=== PATIENT | female | born 1965 | race Caucasian/White ===

== ENCOUNTER 2020-05-01 17:34 | Outpatient (CLI) | payer OTHER, SELFPAY | END 2020-05-01 17:35 | disposition home or self-care (01) | LOC: ANHCOVIDVC 17:34 | PROVIDERS: PCP Nurse Practitioner | DX: Z23 Encounter for immunization (principal) | CPT/HCPCS: 0001A; 91300 ==

== ENCOUNTER → 2020-05-08 17:20 | Outpatient (CLI) | payer OTHER, SELFPAY ==
--- NOTE | ~2020-05-08 | MM_ITS ---
EXAMINATION: MM screening chacorta BI w shanti HISTORY: Screening TECHNIQUE: Craniocaudal and mediolateral oblique 3-D tomosynthesis images were obtained and synthetic 2-D images were generated. CAD analysis was submitted and interpreted. COMPARISON: Comparison to multiple prior studies sequentially, with oldest reviewed study dated 08/18. BREAST PARENCHYMAL COMPOSITION: There are scattered areas of fibroglandular density. FINDINGS: There is no evidence of suspicious mass, calcification, or architectural distortion to sugg est malignancy in either breast. There has been no suspicious interval change. IMPRESSION: 1. No mammographic evidence of malignancy. 2. Recommend routine screening mammography in one year. BI-RADS Category 1: Negative Reviewed, dictated and finalized at location A.
== END ==
PROVIDERS: Visit Provider Nurse Practitioner
DX: Z12.31 Encounter for screening mammogram for malignant neoplasm of breast (principal)
CPT/HCPCS: 77063; 77067

== ENCOUNTER 2020-05-22 17:37 | Outpatient (CLI) | payer OTHER, SELFPAY | END 2020-05-22 17:38 | disposition home or self-care (01) | LOC: ANHCOVIDVC 17:37 | DX: Z23 Encounter for immunization (principal) | CPT/HCPCS: 0002A; 91300 ==

== ENCOUNTER 2020-07-28 18:19 | Observation (INO) | payer OTHER, SELFPAY ==
--- NOTE | ~2020-07-28 | CT_ITS ---
EXAMINATION: CT abdomen pelvis w con DATE: 07/28/2020 23:48 INDICATION: Right lower quadrant abdominal pain. TECHNIQUE: Computed tomography (CT) of the abdomen and pelvis was performed with 100 mL Omnipaque-350 intravenous contrast. Automated exposure control and iterative reconstruction technique were employe d. The dose-length product was 1659.59 mGy-cm. COMPARISON: None FINDINGS: Minimal bibasilar atelectasis. Heart size is normal. No pericardial or pleural effusion. Small slidin g-type hiatal hernia. Multiple calcified gallstones in the normal-appearing gallbladder. Liver, splee n, pancreas and bilateral adrenal glands are normal. Bilateral adrenal glands, the larger on the left measuring 2.4 cm. The fluid-filled appendix is dilated to 14 mm with prominent mucosal enhancement a nd with surrounding inflammatory stranding consistent with acute appendicitis. No abscess or free int raperitoneal gas or fluid. A few diverticula predominantly along the sigmoid colon without adjacent i nflammatory change to suggest diverticulitis. No bowel obstruction. Bladder, anteverted uterus and bi lateral adnexa are unremarkable. Bones are unremarkable. IMPRESSION: 1. Acute appendicitis. 2. Cholelithiasis. 3. Small sliding-type hiatal hernia. Reviewed, dictated and finalized at location A.
[2020-07-28 18:42] VITALS: BP 143/86; PULSE 95; RESP 20; TEMP 36.7; O2SAT 99
[2020-07-28 18:58] LABS: Basophils Absolute Auto 0.1 K/mm3 (0.0-0.1); Basophils Percent Auto 0.4 % (0.2-1.2); Eosinophils Absolute Auto 0.1 K/mm3 (0-0.3); Eosinophils Percent Auto 0.7 % (0-4.4); Hematocrit 49.1 % (37.0-47.0); Hemoglobin 16.2 g/dL (12.0-15.0); Immature Granulocyte Absolute 0.05 K/mm3 (0.00-0.031); Immature Granulocyte Percent A 0.4 % (0-0.5); Lymphocytes Absolute Auto 2.93 K/mm3 (0.9-3.2); Lymphocytes Percent Auto 21.6 % (18.3-44.2); Mean Corpuscular Hemoglobin 31.3 pg (26-34); Mean Corpuscular Volume 94.8 fl (80-100); Mean Platelet Volume 8.9 fl (7.4-10.4); Neutrophils Absolute Auto 9.5 K/mm3 (1.3-6.7); Neutrophils Percent Auto 69.9 % (45.5-73.1); Platelet Count Result 281 k/mm3 (150-375); Red Blood Count 5.18 M/mm3 (4.2-5.4); Red Cell Distribution Width 12.2 % (11.5-14.5); White Blood Count 13.6 K/mm3 (4.5-10.0)
[2020-07-28 19:07] LABS: Alanine Aminotransferase 21 U/L (4-35); Albumin Level 4.5 g/dL (3.5-5.1); Alkaline Phosphatase 84 U/L (38-126); Anion Gap 12 mmol/L (8-16); Aspartate Amino Transferase 24 U/L (14-36); Bilirubin,Total 0.9 mg/dL (0.2-1.3); Blood Urea Nitrogen 10 mg/dL (7-17); Calcium 9.8 mg/dL (8.4-10.2); Carbon Dioxide 24 mmol/L (22-30); Chloride 105 mmol/L (98-107); Estimated CRCL calculation 94 ml/min; Estimated Glomerular Filt Rate > 60; Glucose 77 mg/dL (65-105); Lipase 35 U/L (23-300); Potassium 3.9 mmol/L (3.4-5.0); Sodium 141 mmol/L (137-145)
[2020-07-28 21:24] VITALS: BP 141/90; PULSE 96; RESP 14; O2SAT 100
--- NOTE | 2020-07-28 21:57 | ED.ABDPAIN ---
HPI - Abdominal Pain General Chief Complaint: Abdominal Pain Stated Complaint: abd pain Time Seen by Provider: 07/28/20 21:56 Source: patient Mode of arrival: ambulatory Limitations: no limitations History of Present Illness HPI narrative: 54-year-old with no major medical problems here with right-sided abdominal pain started 1 day ago. Patient states over the weekend she had chest pain radiating into her back went to [facility] cardiac evaluation was told it was normal was discharged home following days she started having right upper and lower abdominal pain. She denied any fever or chills. No history of nausea or vomiting. She had a normal bowel movement day before. MD elicited complaint: abdominal pain Pertinent past history: none Onset (ago): day(s) (1) Pain Consistency: constant Location: RUQ and RLQ Severity: moderate Quality: aching Radiation: back Exacerbating factors: nothing Relieving factors: nothing Associated symptoms: denies other symptoms Related Data Home Medications Medication Instructions Recorded Confirmed efiqmfq-dfjvcqbxrldsb-yaypcnnw 250 1 tablet PO Q4-6H PRN 01/01/19 07/28/20 mg-250 mg-65 mg tablet wjihaubleu-qcjlbbemqzzoj-akijinkd 1 cap PO Q4H PRN 01/01/19 07/28/20 50 mg-300 mg-40 mg capsule calcium carbonate 200 mg calcium 200 mg PO ONCE PRN tablet 01/01/19 07/28/20 (500 mg) chewable tablet vitamin B complex 1 tablet PO DAILY 07/28/20 07/28/20 Allergies Allergy/AdvReac Type Severity Reaction Status Date / Time aspirin Allergy Unknown bleeding Verified 07/28/20 21:48 Review of Systems Review of Systems: All systems reviewed & are unremarkable except as noted in HPI and below Constitutional: Constitutional: Reports no additional constitutional complaints Eyes: Eyes: Reports no additional eye complaints ENT: Reports system reviewed and no additional complaints, except as documented Cardiovascular: Cardiovascular: Reports no additional cardiovascular complaints Respiratory: Respiratory: Reports no additional respiratory complaints Gastrointestinal: Gastrointestinal: Reports as per HPI Musculoskeletal: Musculoskeletal: Reports no additional musculoskeletal complaints Neurologic: Reports system reviewed and no additional complaints, except as documented Psychiatric: Psychiatric: Reports no additional psychiatric complaints Endocrine: Endocrine: Reports no additional endocrine complaints Hematologic/Lymphatic: Hematologic/Lymphatic: Reports no additional hematologic/lymphatic complaints Allergic/Immunologic: Allergic/Immunologic: Reports no additional allergic/immunologic complaints [facility] Past Medical History Medical History Chicken pox Chronic pain Elevated BP without diagnosis of hypertension Gallstones Heartburn Hemorrhoids Hyperlipidemia Migraine Miscarriage Vitamin D deficiency Surgical History Surgical History H/O stem cell transplant Stem cell injection August 2018 Family History Family History Father Heart disease Heart attack Diabetes mellitus Mother Migraines Arthritis Cognitive and behavioral changes Social History Social History Smoking status: Never smoker Alcohol intake: current Substance use: never Exam Narrative: Exam Narrative: GENERAL: Well-appearing, well-nourished, and in no acute distress. HEAD: Normocephalic, atraumatic. EYES: PERRLA and EOMI. ENT: Nares clear, no rhinorrhea or epistaxis. Mucous membranes moist. NECK: Supple. CHEST: Clear to auscultation. No respiratory distress. HEART: Regular rate and rhythm. No murmur heard. Normal peripheral pulses. ABDOMEN: Soft, tender in the right lower quadrant , nondistended, normal active bowel sounds. EXTREMITIES: Normal range of motion. No edema. SKIN:
[2020-07-28 22:14] LABS: Add Urine Microscopic? YES; Appearance Urine Cloudy (Clear); Bacteria Urine Trace /hpf; Bilirubin Urine Negative (Negative); Blood Urine Negative (Negative); Color Urine Yellow (Yellow); Glucose Urine UA Negative (Negative); Ketones Urine 2+ mg/dL (Negative); Leukocyte Esterase Ur 1+ LEU/UL (Negative); Mucus Urine Heavy /lpf; Nitrate Urine Negative (Negative); Protein Urine 1+ mg/dL (Negative); Specific Grav Ur 1.027 (1.001-1.035); Squamous Epithelial Cell Urine Many /hpf (Few); Urobilinogen Urine Negative mg/dL (<2.0); WBC Urine 16-20 /hpf
[2020-07-29] VITALS (14 sets, daily range): BP systolic 129–149; BP diastolic 74–95; PULSE 59–92; RESP 14–20; TEMP 36.1–36.9; O2SAT 92–100; BMI 41.1
--- NOTE | 2020-07-29 02:34 | ADMGEN ---
This patient, Jocelin Oates, was admitted to 3 Med Surg Room 320-01 at 0145. Patient/family oriented to hospital policies and general routines including ID bracelet, bed and alarms, visiting hours, pain management, procedures, bathroom and other care routines, personal items, smoking policy, room service/diet, and visiting hours. Information on how to activate the Rapid Response Team has been discussed. Patient/Family are encouraged to report perceived risks to care and to ask questions if they do not understand what they are told or what they should do.
--- NOTE | 2020-07-29 03:48 | PC.NURSE ---
Addendum entered by Ginny Lion RN 07/29/20 10:42: This note was entered on the wrong patient. Original Note: 0300: Family summons SN to room 320 to find patient w/ no pulse and skin cold to the touch. Notified House Sup (Glo). Comfort and consolement extended to family members w/o incident.
[2020-07-29] MEDS: SODIUM CHLORIDE 0.9% IV 1,000 ML 125 ML IV CONT (07:05)
--- NOTE | 2020-07-29 10:09 | PM.IMHP ---
H&P: HPI History of Present Illness Date/Time: 07/29/20 10:09 Chief Complaint: Right-sided abdominal pain Narrative: This is a 54-year-old morbidly obese female with a history of hyperlipidemia and vitamin D deficiency. She presented to the emergency department yesterday evening with complaints of right-sided abdominal pain. She reports initially did noticing epigastric and substernal chest pain that was shooting to her back last Tuesday. The pain ultimately led her to be evaluated in [place] ER. She had cardiac workup and a chest x-ray that were reportedly negative. She was sent home with NSAIDs and reports the pain quickly resolved. She continued to have some nausea, diarrhea, and poor appetite over the next few days. Over the weekend, she had a or Tuesday and began to have worsening epigastric and right upper quadrant abdominal pain. This again improved and resolved. Yesterday, she notice more just right-sided abdominal pain and decided to present to her PCP for evaluation. Her PCP instructed her to go to the ER for further evaluation. CT scan of the abdomen pelvis in the ER showed acute appendicitis without evidence of perforation, diverticulosis, and cholelithiasis. Labs revealed leukocytosis. The patient was admitted to our service for surgical evaluation of acute appendicitis. She is now seen on the medical floor. She reports her abdominal pain has localized to the right mid and lower abdomen. She denies fever, but did have chills a few days ago. No other complaints at this time. Review of Systems Review of Systems: All systems reviewed & are unremarkable except as noted in HPI and below Constitutional: Constitutional: Reports as per HPI, Denies chills, Denies fatigue and Denies fever(s) Eyes: Eyes: Reports no additional eye complaints and Denies change in vision ENT: Reports system reviewed and no additional complaints, except as documented, Reports Normal hearing present and Denies dizziness Cardiovascular: Cardiovascular: Reports as per HPI, Reports no additional cardiovascular complaints and Denies leg edema Respiratory: Respiratory: Reports no additional respiratory complaints, Denies cough and Denies dyspnea Gastrointestinal: Gastrointestinal: Reports as per HPI, Reports no additional gastrointestinal complaints, Reports abdominal pain (Right sided), Denies melena, Denies hematochezia, Denies constipation, Reports diarrhea, Reports nausea and Denies vomiting Genitourinary: Genitourinary: Denies hematuria, Denies nocturia, Denies dysuria, Denies urinary hesitancy and Denies urinary urgency Musculoskeletal: Musculoskeletal: Denies abnormal gait, Denies deformity, Denies joint swelling, Denies numbness and Denies tingling Integumentary/Breasts: Skin/Breast: Denies wounds and Denies jaundice Neurologic: Reports system reviewed and no additional complaints, except as documented, Reports Normal hearing present, Denies abnormal gait, Denies dizziness, Denies focal weakness, Denies numbness and Denies tingling Psychiatric: Psychiatric: Denies anxiety and Denies depression PMFSH Past Medical History Medical History Chicken pox Chronic pain Elevated BP without diagnosis of hypertension Gallstones Heartburn Hemorrhoids Hyperlipidemia Migraine Miscarriage Vitamin D deficiency Surgical History Surgical History H/O stem cell transplant Right knee PRP stem cell injection August 2018 History of x 2 History of D&C x 2 History of hemorrhoidectomy Family History Family History Father Heart disease Heart attack Diabetes mellitus Mother Migraines Arthritis Cognitive and behavioral changes Social History Social History Smoking status: Never smoker Alcohol inta
--- NOTE | 2020-07-29 11:26 | WPDHPUPDATE1 ---
History and Physical Update Update Date/Time: 07/29/20 11:26 History and Physical has been reviewed, including an updated exam of the patient. There are NO changes in the patient's condition. Risks, benefits, and alternatives have been discussed and questions answered. Patient agrees to proceed with procedure.
[2020-07-29] MEDS: LACTATED RINGERS 1,000 ML 30 ML IV CONT ×2 (12:44→15:15)
--- NOTE | 2020-07-29 12:56 | WPDANESEPPF ---
Anes - Initial Pre Proc Eval Procedure: Operation Date: 07/29/20 14:30 Proposed Procedures p Laparoscopic Appendectomy - Piper Chou MD Date/Time: 07/29/20 12:56 Surgeon: Piper Chou MD Pre Op Diagnosis: Acute Appendicitis Patient Data Age: 54 Gender: F Height: 1.68 m Weight: 115.7 kg Last Vital Signs Temp 36.3 C L 07/29/20 08:02 Pulse 72 07/29/20 08:02 Resp 18 07/29/20 08:02 BP 129/82 07/29/20 08:02 Pulse Ox 98 07/29/20 08:02 Allergies Allergy/AdvReac Type Severity Reaction Status Date / Time aspirin Allergy Unknown bleeding Verified 07/28/20 21:48 Home Medications Medication Instructions Recorded Confirmed Type mwjgotz-mdavwvsqwxrya-bpxkmepd 250 1 tablet PO Q4-6H PRN 01/01/19 07/29/20 History mg-250 mg-65 mg tablet fqktzvjgng-gmrmngcswkbno-kcqolhfz 1 cap PO Q4H PRN 01/01/19 07/29/20 History 50 mg-300 mg-40 mg capsule calcium carbonate 200 mg calcium 200 mg PO ONCE PRN tablet 01/01/19 07/29/20 History (500 mg) chewable tablet valacyclovir 1 gram tablet 2,000 mg PO Q12H PRN #16 tablet 04/03/20 07/29/20 Rx cholecalciferol (vitamin D3) 1,250 50,000 unit PO WEEKLY #8 cap 04/25/20 07/29/20 Rx mcg (50,000 unit) capsule vitamin B complex 1 tablet PO DAILY 07/28/20 07/29/20 History Laboratory Tests 07/28/20 07/28/20 07/28/20 18:49 18:49 21:59 WBC 13.6 K/mm3 H K/mm3 (4.5-10.0) RBC 5.18 M/mm3 M/mm3 (4.2-5.4) Hgb 16.2 g/dL H g/dL (12.0-15.0) Hct 49.1 % H % (37.0-47.0) MCV 94.8 fl fl (80-100) MCH 31.3 pg pg (26-34) MCHC 33.0 g/dl g/dl (32-36) RDW 12.2 % % (11.5-14.5) Plt Count 281 k/mm3 k/mm3 (150-375) MPV 8.9 fl fl (7.4-10.4) Immature Gran % (Auto) 0.4 % % (0-0.5) Neut % (Auto) 69.9 % % (45.5-73.1) Lymph % (Auto) 21.6 % % (18.3-44.2) Harris % (Auto) 7.0 % % (2.6-8.5) Eos % (Auto) 0.7 % % (0-4.4) Baso % (Auto) 0.4 % % (0.2-1.2) Lymph # (Auto) 2.93 K/mm3 K/mm3 (0.9-3.2) Harris # (Auto) 1.0 K/mm3 H K/mm3 (0.1-0.6) Eos # (Auto) 0.1 K/mm3 K/mm3 (0-0.3) Baso # (Auto) 0.1 K/mm3 K/mm3 (0.0-0.1) Abs Immat Gran (auto) 0.05 K/mm3 H K/mm3 (0.00-0.031) Absolute Neuts (auto) 9.5 K/mm3 H K/mm3 (1.3-6.7) Absolute Nucleated RBC 0.0 K/mm3 K/mm3 (0.0-0.012) Nucleated RBC % 0.0 % % (0.0-0.2) Sodium 141 mmol/L mmol/L (137-145) Potassium 3.9 mmol/L mmol/L (3.4-5.0) Chloride 105 mmol/L mmol/L (98-107) Carbon Dioxide 24 mmol/L mmol/L (22-30) Anion Gap 12 mmol/L mmol/L (8-16) BUN 10 mg/dL mg/dL (7-17) Creatinine 0.80 mg/dL mg/dL (0.7-1.0) Estim Creat Clear Calc 94 ml/min ml/min Estimated GFR > 60 (59 - ) Glucose 77 mg/dL mg/dL (65-105) Calcium 9.8 mg/dL mg/dL (8.4-10.2) Total Bilirubin 0.9 mg/dL mg/dL (0.2-1.3) AST 24 U/L U/L (14-36) ALT 21 U/L U/L (4-35) Alkaline Phosphatase 84 U/L U/L (38-126) Total Protein 9.0 g/dL H g/dL (6.3-8.2) Albumin 4.5 g/dL g/dL (3.5-5.1) Lipase 35 U/L U/L (23-300) Urine Color Yellow (Yellow) Urine Appearance Cloudy H (Clear) Urine pH 5.0 (5.0-9.0) Ur Specific [place] 1.027 (1.001-1.035) Urine Protein 1+ mg/dL H mg/dL (Negative) Urine Glucose (UA) Negative mg/dL mg/dL (Negative) Urine Ketones 2+ mg/dL H mg/dL (Negative) Ur Blood (Man) Negative (Negative) Urine Nitrate Negative (Negative) Urine Bilirubin Negative (Negative) Urine Urobilinogen Negative mg/dL mg/dL (<2.0) Leukocyte Esterase Rfl 1+ ABHINAV/UL H ABHINAV/UL (Negative) Ur
[2020-07-29] MEDS: BUPIVACAINE/EPINEPHRINE 0.5% 10 ML VIAL 30 ML INFILTRATE (14:17)
--- NOTE | 2020-07-29 14:45 | W.PM.PROC2 ---
Procedure Note - Detailed Date of Procedure 07/29/20 Pre-op Diagnosis Acute Appendicitis Post-op Diagnosis same Procedure Performed laparoscopic appendectomy Surgeon Piper Chou MD Anesthesia general Findings acute appendicitis no evidence of perforation Description of Procedure The patient was taken to the operating room and placed in the supine position. After adequate induction of general anesthesia, the patient was prepped and draped in the normal sterile fashion. A time-out was then done to verify the patient's identity, as well as the procedure being performed. I began by making a 5 mm incision in the infraumbilical region, through this a Veress needle was placed in the peritoneal cavity. CO2 gas was then insufflated and after adequate pneumoperitoneum was achieved the Veress needle was removed. Then placed a 5 mm Optiview trocar under direct visualization into the peritoneal cavity. I then insufflated through this trocar site and the endoscope was placed into the trocar. Under direct visualization, placed 2 further 5 mm suprapubic port as well as an additional 12 mm port in the left lower abdomen. At this point identified the cecum, I retracted the cecum both medially and superiorly allowing me to expose the appendix. The appendix was noted to be very dilated and inflamed especially towards the tip. The appendix was noted to be very adherent to the right lateral sidewall as well the lateral posterior cecum, in the retrocecal position. I was able to bluntly dissect the appendix from these adhesions and flip the appendix superiorly. I then was able to locate the base of the appendix with the cecum. I created a window with the [place] dissector between the appendix itself and the mesoappendix. I then transected the mesoappendix with a white vascular staple load. The Endo-KORINA was then reloaded with a blue staple load and I transected the base of the appendix. Once the specimen was completely detached, an endo-pouch was placed into the 12 mm port site and the specimen was removed through the endo-pouch. The appendiceal specimen will be sent to pathology for further review. I then copiously irrigated the right lower quadrant. Hemostasis was noted at both staple lines no other pathology was seen in this area. I then moved the camera to the suprapubic port to check our its port of entry. No iatrogenic injury or other pathology was noted in the upper abdomen. I then closed the 12 mm port site with a Mikey code and 0 Vicryl suture under direct visualization. At this point, the abdomen was desufflated and all ports were removed. All port sites were closed with 4 Monocryl subcuticular suture. Dermabond was placed on all wounds. The patient tolerated the procedure well and was extubated in the operating room postop. She will be sent to the recovery room in stable condition. Estimated Blood Loss 10 Urine Output 0 Drains No Pathology yes Complications No immediate complications Condition stable Disposition PACU
[2020-07-29] MEDS: fentaNYL CITRATE INJ (*CRX) 100 MCG/2 ML VIAL 25 MCG IV PUSH ×4 (15:02→15:31)
[2020-07-29] MEDS: ONDANSETRON INJ 4 MG/2 ML VIAL IV PUSH (15:13)
[2020-07-29] MEDS: MORPHINE SULFATE (*CRX) 4 MG/ML INJ IV PUSH ×2 (16:48→18:49)
[2020-07-29] MEDS: DOCUSATE SODIUM 100 MG CAPSULE PO (21:15)
[2020-07-29] MEDS: HYDROcodone/acetaminophen (*CRX) 5-325 MG TABLET 1 TAB PO (21:19)
[2020-07-30] MEDS: HYDROcodone/acetaminophen (*CRX) 5-325 MG TABLET 1 TAB PO ×2 (03:52→18:49)
[2020-07-30 06:00] VITALS: BP 130/80; PULSE 57; RESP 18; TEMP 36.3; O2SAT 98
--- NOTE | 2020-07-30 07:38 | WPDANESPN ---
Anes - Prog Note Post-Op Date/Time: 07/30/20 07:38 Cardiovascular status: normal Respiratory status: normal Airway patency: baseline Mental status: baseline Post-Op hydration status: normal Vital Signs: Last Vital Signs Temp 97.4 F L 07/30/20 06:00 Pulse 57 L 07/30/20 06:00 Resp 18 07/30/20 06:00 BP 130/80 07/30/20 06:00 Pulse Ox 98 07/30/20 06:00 Pain Score (VAS): 0 I/O: Intake & Output 07/29/20 07/29/20 07/30/20 15:59 23:59 07:59 Intake Total 950 240 550 Output Total 0 500 1800 Balance 924 -[phone] -[id number] Laboratory Tests 07/28/20 18:49 07/28/20 18:49 Patient Feedback: Patient satisfied with anesthetic care.
[2020-07-30 08:00] VITALS: BP 138/88; PULSE 51; RESP 18; TEMP 36.7; O2SAT 98
[2020-07-30] MEDS: VITAMIN B COMPLEX CAPSULE 1 CAP PO (08:40)
[2020-07-30] MEDS: DOCUSATE SODIUM 100 MG CAPSULE PO (08:40)
[2020-07-30 09:55] VITALS: O2SAT 98
--- NOTE | 2020-07-30 10:05 | PM.DS ---
DS: Admitting Diagnosis Admitting Diagnosis Admitting Diagnosis: Acute uncomplicated appendicitis Morbid obesity BMI 41 Cholelithiasis DS: Discharge Diagnosis Discharge Diagnosis (1) Acute appendicitis: Qualifiers: Acute appendicitis type: with localized peritonitis Appendicitis abscess presence: without abscess Appendicitis gangrene presence: without gangrene Appendicitis perforation presence: without perforation Qualified Code(s): K35.30 - Acute appendicitis with localized peritonitis, without perforation or gangrene Code(s): K35.80 - Unspecified acute appendicitis Status: Acute Assessment and Plan: Laparoscopic appendectomy by Dr. Chou on 07/29/2020 (2) Obesity, Class III, BMI 40-49.9 (morbid obesity): Code(s): E66.01 - Morbid (severe) obesity due to excess calories Status: Acute (3) Cholelithiasis: Code(s): K80.20 - Calculus of gallbladder without cholecystitis without obstruction Status: Acute DS: Summary Hospital Course Reason for hospitalization: This is a 54-year-old morbidly obese female who presented to the ED 2 nights ago with complaints of right-sided abdominal pain. She has had intermittent symptoms for the past week as detailed in the H and P. Her abdominal pain was associated with nausea, diarrhea, and poor appetite. ED workup revealed acute uncomplicated appendicitis on the CT scan. This was accompanied by mild leukocytosis on labs. She was admitted to our service in the setting for acute appendicitis. Hospital Course: The patient was started on broad-spectrum IV antibiotics, made NPO, and started on analgesics and IV fluids. She was taken to the OR for an urgent laparoscopic appendectomy by Dr. Chou on 07/29/2020. In surgery, she was found to appendix in the retrocecal position, but without evidence perforation. No immediate complications following surgery. In the evening after surgery, she had issues with pain control and was kept overnight for observation. Initially, she was treated with IV analgesics, but has not had any IV morphine since yesterday evening. Since then, her pain has been well-controlled with oral analgesics. She is actually requesting more options for mild pain medication, which I have added oral Tylenol and ibuprofen to be alternated. She has been advanced on a diet and is tolerating this without any issues. No nausea or vomiting. She is doing well otherwise. Patient is stable for discharge today. All discharge care instructions were discussed with her in detail. Status at Discharge Functional status at discharge: independent ambulation Overall status at discharge: patient is progressing back to baseline Time Spent with Patient Time attestation: Total time spent providing and/or coordinating discharge services: Exam Const: General: comfortable, no acute distress, alert and awake Orientation/consciousness: patient oriented x3 Resp: Effort & Inspection: normal respiratory effort Auscultation: clear to auscultation bilaterally Cardio: Rate: regular rate Rhythm: regular rhythm GI: Inspection: non-distended and incision (Abdominal incisions clean and dry, glue intact.) GI Palp: Yes Soft to palpation and Yes Tenderness to palpation present (GI) (incisional) Auscultation: normal bowel sounds Skin: General skin exam: normal color Neuro: General: moves all extremities and no focal motor deficits Extrem: General: no clubbing, cyanosis or edema and no calf tenderness Psych: Mental Status: mental status grossly normal Insight: Good insight present (Psych) Judgement: Good judgement present (Psych) DS: Data Data Completed and Pending Completed studies during hospitalization: ITS Impressions Abdomen/Pelvis CT 07/28/20 23:51 IMPRESSION: 1. Acute appendicitis. 2. Cholelithiasis. 3. Small sliding-type hiatal hernia. Pending studies at discharge: Pending at discharge 07/29/20 14:14 Surgical [PTH] Lisa
[2020-07-30] MEDS: IBUPROFEN 600 MG TABLET PO ×2 (10:21→17:18)
[2020-07-30] MEDS: SENNA/DOCUSATE SODIUM TABLET 1 TAB PO ×2 (11:46→17:21)
[2020-07-30] MEDS: ACETAMINOPHEN 500 MG TABLET 1000 MG PO (13:43)
[2020-07-30 14:00] VITALS: BP 123/68; PULSE 69; RESP 18; TEMP 36.9; O2SAT 98
== END 2020-07-30 20:00 | disposition home or self-care (01) ==
LOC: ANHED 07-29 00:25 → ANH3MEDSUR 07-29 00:48
PROVIDERS: Emergency Medicine; Admitting Provider Surgery; Emergency Provider Family Medicine; PCP Internal Medicine; Visit Provider Surgery
PROC: 0DTJ4ZZ Resection of Appendix, Percutaneous Endoscopic Approach (ICD-10-PCS; CPT 44970; principal; 2020-07-29 14:30)
DX: K35.30 Acute appendicitis with localized peritonitis, without perforation or gangrene (principal); K80.20 Calculus of gallbladder without cholecystitis without obstruction; K57.92 Diverticulitis of intestine, part unspecified, without perforation or abscess without bleeding; E66.01 Morbid (severe) obesity due to excess calories; E78.5 Hyperlipidemia, unspecified; E55.9 Vitamin D deficiency, unspecified; Z68.41 Body mass index [BMI] 40.0-44.9, adult
CPT/HCPCS: 44970; 36415; 74177; 80053; 81001; 81025; 83690; 85025; 87086; 88304; 96361; 96365; 96366; 96376; 99285; A9270; G0378; J0330; J1100; J2250; J2270; J2405; J2543; J2704; J3010; J7030; J7120; Q9967

== ENCOUNTER 2021-02-25 01:37 | Day surgery (SDC) | payer OTHER, SELFPAY ==
[2021-02-16 14:44] VITALS: BMI 42.0
--- NOTE | 2021-02-16 15:05 | PC.NURSE ---
Report to the Outpatient Waiting Room, entrance under the green pavilion located off [facility], at time 1230 on date 02/25/21. OR Time: 1430. - You will be asked a series of questions to screen for COVID 19 for your protection. - A mask is required within the hospital. - No visitors are allowed at this time. Patient visitors will be guided where to wait when not with patient. Preoperative COVID Testing Requirements: No COVID Test needed if: (proof is required; if not received patient will have Rapid Test prior to entry) - Patient has received COVID Vaccine at least 14 days prior to procedure date or - Patient has positive COVID test result within last 90 days of surgery date. COVID Test needed if above criteria is not met Patients may have clear liquids (water, carbonated beverages, clear teas, apple juice) until 3 hours prior to surgery with a maximum of 20 ounces. - No food from midnight until time of surgery Take the following medications with a SIP of water the morning of surgery: VALACYCLOVIR (IF NEEDED) Medications to discontinue per physician: VITAMINS/SUPPLEMENTS Date to take last dose: 02/22/[address] RENNER'S INSTRUCTIONS Please no make-up, nail faroese, hairspray, perfume, deodorant, or body powder the day of surgery. No jewelry (including any body piercings) or valuables the day of surgery, leave them at home. Please take a shower or bath the night before, or the morning of, surgery with an antibacterial soap. Wear comfortable, loose fitting clothing. Children are encouraged to wear pajamas. - Jewelry must be removed prior to entering the operating room. Rings and piercings that are not removed may be cut off. - The hospital will not accept responsibility for valuables. - Please leave all valuables, including medications, at home the day of surgery. If you are going home after surgery, a licensed coach driver must drive you home. - NO public transportation without another adult. - We recommend that an adult stay with you for 24 hours following discharge. - We also recommend that you do not drive, make important decision, drink alcoholic beverages, or take any drugs that were not prescribed by your health care provider for at least 24 hours after your discharge time. Follow any additional instructions given to you from your surgeon. Telephone instructions given to FLOYD GAN and asked if any additional questions and then verbalized understanding. Patient advised to call surgeon office or pre surgery nurse liaison [phone] if any additional questions.
--- NOTE | 2021-02-25 07:59 | WPDANESEPPF ---
Anes - Initial Pre Proc Eval Procedure: Operation Date: 02/25/21 14:30 Proposed Procedures p Hysteroscopy, Dilation and Curettage - Benedict Terry MD Date/Time: 02/25/21 07:59 Surgeon: Benedict Terry MD Pre Op Diagnosis: post menopausal bleeding Patient Data Age: 55 Gender: F Height: 1.68 m Weight: 118 kg Allergies Allergy/AdvReac Type Severity Reaction Status Date / Time aspirin Allergy Mild bleeding Verified 02/25/21 13:14 Home Medications Medication Instructions Recorded Confirmed Type qijqzln-vmemaiskgqxxa-yvnybktd 250 1 tablet PO Q4-6H PRN 01/01/19 02/16/21 History mg-250 mg-65 mg tablet fbjehsiyhb-yyixnfscsszle-kyrmtibv 1 cap PO Q4H PRN 01/01/19 02/16/21 History 50 mg-300 mg-40 mg capsule calcium carbonate 200 mg calcium 200 mg PO ONCE PRN tablet 01/01/19 02/16/21 History (500 mg) chewable tablet valacyclovir 1 gram tablet 2,000 mg PO Q12H PRN #16 tablet 04/03/20 02/16/21 Rx vitamin B complex 1 tablet PO DAILY 07/28/20 02/16/21 History aspirin 81 mg tablet,delayed 81 mg PO DAILY 09/26/20 02/16/21 History release omeprazole 20 mg capsule,delayed 20 mg PO DAILY #30 cap 11/24/20 02/16/21 Rx release ascorbic acid (vitamin C) [Vitamin 500 mg PO DAILY 02/16/21 02/16/21 History C] cholecalciferol (vitamin D3) 75 mcg PO DAILY 02/16/21 02/16/21 History [Vitamin D3] docusate sodium [Colace] 100 mg PO BID 02/16/21 02/16/21 History melatonin 10 mg PO HS PRN 02/16/21 02/16/21 History Patient hx anesthesia problems: none Family hx anesthesia problems: none Results Review: All pre-operative results and documents have been reviewed as part of the pre-operative evaluation. [facility] Past Medical History Medical History Chicken pox Chronic pain COPD (chronic obstructive pulmonary disease) Elevated BP without diagnosis of hypertension Gallstones GERD (gastroesophageal reflux disease) Heartburn Hemorrhoids Hyperlipidemia Migraine Miscarriage Vitamin D deficiency Surgical History Surgical History H/O stem cell transplant Right knee PRP stem cell injection August 2018 History of appendectomy (~07/2020) History of x 2 History of D&C x 2 History of hemorrhoidectomy Family History Family History Father Heart disease Heart attack Diabetes mellitus Mother Migraines Arthritis Cognitive and behavioral changes Social History Social History Smoking status: Never smoker Alcohol intake: current Drinks per week: 2 Alcohol use details: Pt drinks occasionally. Substance use: never Substance use type: does not use Living arrangements: with family Gender identity (if verbalized by the patient): Female Sexual Orientation (if Verbalized by the Patient): Straight or Heterosexual Spiritual care concerns: No Anes - Eval Final PreProcedure Day of Procedure 02/25/21 07:59 Patient weight: morbidly obese Heart: regular rate and rhythm Lungs: clear to auscultation and normal air movement Airway: Mallampati scale class II Neurological: alert and oriented Last oral intake: >/= 8 hours ASA classification: III Emergent: no Anesthetic plan: proceed Anesthesia type and monitoring: general GIVS and standard monitoring Results Review: All pre-operative results and documents have been reviewed as part of the pre-operative evaluation. Informed Consent: The patient's anesthetic plan and its attendant risks and benefits were discussed with the patient/family/POA. Questions were solicited and answers provided to the satisfaction of the patient/family/POA.
--- NOTE | 2021-02-25 13:03 | PM.IMHP ---
H&P: HPI History of Present Illness Date/Time: 02/25/21 13:03 55 y/o with an episode of postmenopausal bleeding. Ultrasound showed an endometrial complex 10.6 mm thick. Chief Complaint: Bleeding Review of Systems Review of Systems: All systems reviewed & are unremarkable except as noted in HPI and below [facility] Past Medical History Medical History Chicken pox Chronic pain COPD (chronic obstructive pulmonary disease) Elevated BP without diagnosis of hypertension Gallstones GERD (gastroesophageal reflux disease) Heartburn Hemorrhoids Hyperlipidemia Migraine Miscarriage Vitamin D deficiency Surgical History Surgical History H/O stem cell transplant Right knee PRP stem cell injection August 2018 History of appendectomy (~07/2020) History of x 2 History of D&C x 2 History of hemorrhoidectomy Family History Family History Father Heart disease Heart attack Diabetes mellitus Mother Migraines Arthritis Cognitive and behavioral changes Social History Social History Smoking status: Never smoker Alcohol intake: current Drinks per week: 2 Alcohol use details: Pt drinks occasionally. Substance use: never Substance use type: does not use Living arrangements: with family Gender identity (if verbalized by the patient): Female Sexual Orientation (if Verbalized by the Patient): Straight or Heterosexual Spiritual care concerns: No Meds Home Medications and Allergies Home Medications Medication Instructions Recorded Confirmed Type emzrcpb-ewwbfzhrdvwqd-nwwbrmcr 250 1 tablet PO Q4-6H PRN 01/01/19 02/16/21 History mg-250 mg-65 mg tablet jarzchsikv-eieyfesfjqebs-ukvxemxb 1 cap PO Q4H PRN 01/01/19 02/16/21 History 50 mg-300 mg-40 mg capsule calcium carbonate 200 mg calcium 200 mg PO ONCE PRN tablet 01/01/19 02/16/21 History (500 mg) chewable tablet valacyclovir 1 gram tablet 2,000 mg PO Q12H PRN #16 tablet 04/03/20 02/16/21 Rx vitamin B complex 1 tablet PO DAILY 07/28/20 02/16/21 History aspirin 81 mg tablet,delayed 81 mg PO DAILY 09/26/20 02/16/21 History release omeprazole 20 mg capsule,delayed 20 mg PO DAILY #30 cap 11/24/20 02/16/21 Rx release ascorbic acid (vitamin C) [Vitamin 500 mg PO DAILY 02/16/21 02/16/21 History C] cholecalciferol (vitamin D3) 75 mcg PO DAILY 02/16/21 02/16/21 History [Vitamin D3] docusate sodium [Colace] 100 mg PO BID 02/16/21 02/16/21 History melatonin 10 mg PO HS PRN 02/16/21 02/16/21 History Allergies Allergy/AdvReac Type Severity Reaction Status Date / Time aspirin Allergy Unknown bleeding Verified 02/16/21 14:39 Exam Const: Orientation/consciousness: patient oriented x3 Other: Well-developed, well-nourished female in no acute distress. Neck: Thyroid: thyroid normal Lymphatic: no lymphadenopathy noted (in neck, axilla or inguinal nodes) Resp: Effort & Inspection: normal respiratory effort Auscultation: clear to auscultation bilaterally Cardio: Rate: regular rate Rhythm: regular rhythm Heart sounds: S1 normal heart sound present and S2 normal heart sound present GI: Other: ABD: Soft, nontender, nondistended. No guarding or rebound tenderness. No hepatosplenomegaly. : General: Yes no CVA tenderness Other: External genitalia: normal female hair distribution, without lesion. Urethral meatus: no lesion, non prolapsed. Bladder: no mass, nontender Vagina: well-estrogenized, without lesion or discharge. No cystocele or rectocele. Cervix: no lesion or discharge. Uterus: small, anteverted, freely mobile, nontender Adnexa: no mass or tenderness. Anus/perineum: no lesions, nontender Back/Spine/Pelvis: Back: no CVA tenderness Skin: General skin exam: normal color and no rashes o
[2021-02-25] MEDS: ACETAMINOPHEN 500 MG TABLET 1000 MG PO (14:00)
[2021-02-25] MEDS: LACTATED RINGERS 1,000 ML 30 ML IV CONT (14:11)
--- NOTE | 2021-02-25 14:13 | WPDHPUPDATE1 ---
History and Physical Update Update Date/Time: 02/25/21 14:13 History and Physical has been reviewed, including an updated exam of the patient. There are NO changes in the patient's condition. Risks, benefits, and alternatives have been discussed and questions answered. Patient agrees to proceed with procedure.
[2021-02-25 14:21] VITALS: BP 146/87; PULSE 76; TEMP 37; O2SAT 99
--- NOTE | 2021-02-25 14:59 | W.PM.PROC2 ---
Procedure Note - Detailed Date of Procedure 02/25/21 Pre-op Diagnosis post menopausal vaginal bleeding Post-op Diagnosis same Procedure Performed Hysteroscopy Dilation and sharp curettage Endometrial polypectomy Surgeon Benedict Terry MD Anesthesia MAC and local (1% lidocaine) Findings Three fundal endometrial polyps. Both tubal ostia seen. Endometrial tissue otherwise atrophic. Description of Procedure The patient was taken to the operating room where she was prepared and draped in the usual sterile fashion in the dorsal lithotomy position. The bladder was drained with a red rubber catheter. A sterile speculum was placed into the vagina. The anterior lip of the cervix was grasped with single-tooth tenaculum. Ten mL of 1% lidocaine was administered in a paracervical block. The cervix was then gently dilated using Hegar dilators until an 8 mm dilator could be passed. Hysteroscopy was performed using sterile saline as a distention medium. Findings are as noted above. The polyp forceps were advanced and polyps were easily removed. Sharp curettage was then performed, and endometrial curettings were collected on a Telfa pad and passed off to be sent to pathology. A second look with the hysteroscope confirmed complete excision of the three polyps. Hemostasis was excellent. Sponge, lap, needle and instrument counts were correct. The patient was awakened and taken to the recovery room in stable condition. I was present and scrubbed through the entire procedure. Implants None Estimated Blood Loss 5 Drains No Packing No Pathology yes (endometrial polyps, endometrial curettings) Complications None Condition stable Disposition PACU
[2021-02-25 15:00] VITALS: BP 146/84; PULSE 77; RESP 20; O2SAT 98
[2021-02-25 15:30] VITALS: BP 189/87; PULSE 70; RESP 16
[2021-02-25] MEDS: KETOROLAC 30 MG/ML VIAL (*BKC) IV PUSH (15:53)
[2021-02-25 16:02] VITALS: BP 156/92; PULSE 60; RESP 16
[2021-02-25 16:15] VITALS: BP 141/82; PULSE 54; RESP 16
== END 2021-02-25 16:19 | disposition home or self-care (01) ==
PROVIDERS: PCP Internal Medicine; Visit Provider Obstetrics & Gynecology
PROC: 0U5B8ZZ Destruction of Endometrium, Via Natural or Artificial Opening Endoscopic (ICD-10-PCS; CPT 58563; principal; 2021-02-25 14:30)
DX: N95.0 Postmenopausal bleeding (principal); N84.0 Polyp of corpus uteri; J44.9 Chronic obstructive pulmonary disease, unspecified; E78.5 Hyperlipidemia, unspecified; K21.9 Gastro-esophageal reflux disease without esophagitis; E55.9 Vitamin D deficiency, unspecified; Z79.82 Long term (current) use of aspirin; E66.01 Morbid (severe) obesity due to excess calories; Z68.41 Body mass index [BMI] 40.0-44.9, adult
CPT/HCPCS: 58558; 88305; A9270; J1885; J2250; J2704; J7120

== ENCOUNTER 2021-04-06 01:27 | Day surgery (SDC) | payer OTHER, SELFPAY ==
[2021-04-01 12:43] VITALS: BMI 42.8
--- NOTE | 2021-04-03 15:01 | PM.HPGS ---
History of Present Illness History of Present Illness Consent: Risks, benefits, and alternatives have been discussed and questions answered. Patient agrees to proceed with procedure. Chief complaint: GERD, dysphagia Narrative: Jocelin Oates is a 55 year old female With a long history of acid reflux is now having dysphagia for solid food. She also is having trouble with bloating and gas. She is using Tums [id number] but recently started started taking omeprazole which did not seem to help and she was afraid that it might cause dementia. Review of Systems Review of Systems: All systems reviewed & are unremarkable except as noted in HPI and below [facility] Past Medical History Medical History Chicken pox Chronic pain COPD (chronic obstructive pulmonary disease) Elevated BP without diagnosis of hypertension Gallstones GERD (gastroesophageal reflux disease) Heartburn Hemorrhoids Hyperlipidemia Migraine Miscarriage Vitamin D deficiency Surgical History Surgical History H/O stem cell transplant Right knee PRP stem cell injection August 2018 History of appendectomy (~07/2020) History of x 2 History of D&C x 2 History of hemorrhoidectomy Family History Family History Father Heart disease Heart attack Diabetes mellitus Mother Migraines Arthritis Cognitive and behavioral changes Social History Social History Smoking status: Never smoker Alcohol intake: current Drinks per week: 2 Alcohol use details: Pt drinks occasionally. Substance use: never Substance use type: does not use Living arrangements: with family Gender identity (if verbalized by the patient): Female Sexual Orientation (if Verbalized by the Patient): Straight or Heterosexual Spiritual care concerns: No Meds Home Medications and Allergies Home Medications Medication Instructions Recorded Confirmed Type dohxksl-udhucivrnxbgy-qzrftoxq 250 1 tablet PO Q4-6H PRN 01/01/19 04/06/21 History mg-250 mg-65 mg tablet thckijagpk-epxioytjppsan-zpzucrjz 1 cap PO Q4H PRN 01/01/19 04/06/21 History 50 mg-300 mg-40 mg capsule calcium carbonate 200 mg calcium 200 mg PO ONCE PRN tablet 01/01/19 04/06/21 History (500 mg) chewable tablet valacyclovir 1 gram tablet 2,000 mg PO Q12H PRN #16 tablet 04/03/20 04/06/21 Rx vitamin B complex 1 tablet PO DAILY 07/28/20 04/06/21 History aspirin 81 mg tablet,delayed 81 mg PO DAILY 09/26/20 04/06/21 History release ascorbic acid (vitamin C) [Vitamin 500 mg PO DAILY 02/16/21 04/06/21 History C] cholecalciferol (vitamin D3) 75 mcg PO DAILY 02/16/21 04/06/21 History [Vitamin D3] docusate sodium [Colace] 100 mg PO BID 02/16/21 04/06/21 History melatonin 10 mg PO HS PRN 02/16/21 04/06/21 History Allergies Allergy/AdvReac Type Severity Reaction Status Date / Time aspirin AdvReac Mild bleeding Verified 04/06/21 08:42 Exam Const: General: alert Nutritional Appearance: obese Orientation/consciousness: patient oriented x3 Resp: Auscultation: clear to auscultation bilaterally Cardio: Rhythm: regular rhythm GI: GI Palp: Yes Soft to palpation and No Tenderness to palpation present (GI) Neuro: General: patient oriented x3 Assessment and Plan Assessment and plan (1) Dysphagia: Code(s): R13.10 - Dysphagia, unspecified Status: Acute Assessment and Plan: EGD with possible biopsy or dilatation or cautery.
[2021-04-06 08:43] VITALS: BP 135/92; PULSE 60; RESP 18; TEMP 36.7; O2SAT 100
--- NOTE | 2021-04-06 08:59 | WPDANESEPPF ---
Anes - Initial Pre Proc Eval Procedure: Operation Date: 04/06/21 09:30 Proposed Procedures p Esophagogastroduodenoscopy - Antoni Luis MD Date/Time: 04/06/21 08:59 Surgeon: Antoni Luis MD Pre Op Diagnosis: GERD, dysphagia Patient Data Age: 55 Gender: F Height: 1.68 m Weight: 121 kg Last Vital Signs Temp 36.7 C 04/06/21 08:43 Pulse 60 04/06/21 08:43 Resp 18 04/06/21 08:43 BP 135/92 H 04/06/21 08:43 Pulse Ox 100 04/06/21 08:43 Allergies Allergy/AdvReac Type Severity Reaction Status Date / Time aspirin AdvReac Mild bleeding Verified 04/06/21 08:42 Home Medications Medication Instructions Recorded Confirmed Type aavzyne-flzhuvualqnqv-onleubwt 250 1 tablet PO Q4-6H PRN 01/01/19 04/06/21 History mg-250 mg-65 mg tablet qtfrlhlhzk-hccgnxlnkmgga-rjwgwjcu 1 cap PO Q4H PRN 01/01/19 04/06/21 History 50 mg-300 mg-40 mg capsule calcium carbonate 200 mg calcium 200 mg PO ONCE PRN tablet 01/01/19 04/06/21 History (500 mg) chewable tablet valacyclovir 1 gram tablet 2,000 mg PO Q12H PRN #16 tablet 04/03/20 04/06/21 Rx vitamin B complex 1 tablet PO DAILY 07/28/20 04/06/21 History aspirin 81 mg tablet,delayed 81 mg PO DAILY 09/26/20 04/06/21 History release ascorbic acid (vitamin C) [Vitamin 500 mg PO DAILY 02/16/21 04/06/21 History C] cholecalciferol (vitamin D3) 75 mcg PO DAILY 02/16/21 04/06/21 History [Vitamin D3] docusate sodium [Colace] 100 mg PO BID 02/16/21 04/06/21 History melatonin 10 mg PO HS PRN 02/16/21 04/06/21 History Patient hx anesthesia problems: none Family hx anesthesia problems: none Results Review: All pre-operative results and documents have been reviewed as part of the pre-operative evaluation. [facility] Past Medical History Medical History Chicken pox Chronic pain COPD (chronic obstructive pulmonary disease) Elevated BP without diagnosis of hypertension Gallstones GERD (gastroesophageal reflux disease) Heartburn Hemorrhoids Hyperlipidemia Migraine Miscarriage Vitamin D deficiency Surgical History Surgical History H/O stem cell transplant Right knee PRP stem cell injection August 2018 History of appendectomy (~07/2020) History of x 2 History of D&C x 2 History of hemorrhoidectomy Family History Family History Father Heart disease Heart attack Diabetes mellitus Mother Migraines Arthritis Cognitive and behavioral changes Social History Social History Smoking status: Never smoker Alcohol intake: current Drinks per week: 2 Alcohol use details: Pt drinks occasionally. Substance use: never Substance use type: does not use Living arrangements: with family Gender identity (if verbalized by the patient): Female Sexual Orientation (if Verbalized by the Patient): Straight or Heterosexual Spiritual care concerns: No Anes - Eval Final PreProcedure Day of Procedure 04/06/21 08:59 Patient weight: morbidly obese Heart: regular rate and rhythm Lungs: clear to auscultation Airway: Mallampati scale class II Neurological: alert and oriented Last oral intake: >/= 8 hours ASA classification: III Emergent: no Anesthetic plan: proceed Anesthesia type and monitoring: general GIVS and standard monitoring Results Review: All pre-operative results and documents have been reviewed as part of the pre-operative evaluation. Informed Consent: The patient's anesthetic plan and its attendant risks and benefits were discussed with the patient/family/POA. Questions were solicited and answers provided to the satisfaction of the patient/family/POA.
[2021-04-06] MEDS: LACTATED RINGERS 1,000 ML 150 ML IV CONT (09:01)
[2021-04-06 09:39] VITALS: BP 125/77; PULSE 77; RESP 12; O2SAT 98
[2021-04-06 09:49] VITALS: BP 118/70; PULSE 72; RESP 13; O2SAT 97
[2021-04-06 09:59] VITALS: BP 120/75; PULSE 70; RESP 15; O2SAT 98
== END 2021-04-06 10:21 | disposition home or self-care (01) ==
PROVIDERS: PCP Internal Medicine; Visit Provider Internal Medicine Gastroenterology
PROC: 0DJ08ZZ Inspection of Upper Intestinal Tract, Via Natural or Artificial Opening Endoscopic (ICD-10-PCS; CPT 43235; principal; 2021-04-06 09:30)
DX: K22.2 Esophageal obstruction (principal); K21.00 Gastro-esophageal reflux disease with esophagitis, without bleeding; K29.70 Gastritis, unspecified, without bleeding; J44.9 Chronic obstructive pulmonary disease, unspecified; E78.5 Hyperlipidemia, unspecified; Z79.82 Long term (current) use of aspirin; E55.9 Vitamin D deficiency, unspecified; E66.01 Morbid (severe) obesity due to excess calories; Z68.41 Body mass index [BMI] 40.0-44.9, adult
CPT/HCPCS: 43239; 43249; 87081; 88305; C1726; J2704; J7120

== ENCOUNTER 2021-09-04 01:47 | Day surgery (SDC) | payer OTHER, SELFPAY ==
[2021-08-21 13:13] VITALS: BMI 42.8
--- NOTE | 2021-09-03 14:43 | WPDANESEPPF ---
Anes - Initial Pre Proc Eval Procedure: Operation Date: 09/04/21 12:30 Proposed Procedures p Esophagogastroduodenoscopy - Antoni Luis MD Date/Time: 09/03/21 14:43 Surgeon: Antoni Luis MD Pre Op Diagnosis: dysphagia Patient Data Age: 55 Gender: F Height: 1.68 m Weight: 120.4 kg Allergies Allergy/AdvReac Type Severity Reaction Status Date / Time aspirin AdvReac Mild bleeding Verified 09/04/21 11:37 Home Medications Medication Instructions Recorded Confirmed Type vovbkzd-xwupuxrpxicvj-idbfsilv 250 1 tablet PO Q4-6H PRN Migraine 01/01/19 09/04/21 History mg-250 mg-65 mg tablet (Excedrin Headache Migraine) zyeejwkwog-sdxxvstgclnua-xfqvmorx 1 cap PO Q4H PRN Migraine Headache 01/01/19 09/04/21 History 50 mg-300 mg-40 mg capsule (Fioricet) vitamin B complex (B 1 tablet PO DAILY 07/28/20 09/04/21 History Complex-Vitamin B12 tablet) aspirin 81 mg tablet,delayed 81 mg PO DAILY 09/26/20 09/04/21 History release ascorbic acid (vitamin C) 500 mg 500 mg PO DAILY 02/16/21 09/04/21 History tablet (Vitamin C) cholecalciferol (vitamin D3) 25 75 mcg PO DAILY 02/16/21 09/04/21 History mcg (1,000 unit) tablet (Vitamin D3) docusate sodium 100 mg capsule 100 mg PO BID 02/16/21 09/04/21 History (Colace) melatonin 10 mg tablet 10 mg PO HS PRN Insomnia 02/16/21 09/04/21 History pantoprazole 40 mg tablet,delayed 40 mg PO QAM #30 tabs 08/28/21 09/04/21 Rx release valacyclovir 1 gram tablet 2,000 mg PO Q12H PRN cold sores 09/04/21 09/04/21 Rx #16 tabs Patient hx anesthesia problems: none Family hx anesthesia problems: none Results Review: All pre-operative results and documents have been reviewed as part of the pre-operative evaluation. [facility] Past Medical History Medical History Chicken pox Chronic pain COPD (chronic obstructive pulmonary disease) Elevated BP without diagnosis of hypertension Gallstones GERD (gastroesophageal reflux disease) Heartburn Hemorrhoids Hyperlipidemia Migraine Miscarriage Vitamin D deficiency Surgical History Surgical History H/O stem cell transplant Right knee PRP stem cell injection August 2018 History of appendectomy (~07/2020) History of x 2 History of D&C x 2 History of hemorrhoidectomy Family History Family History Father Heart disease Heart attack Diabetes mellitus Mother Migraines Arthritis Cognitive and behavioral changes Social History Social History Smoking status: Never smoker Alcohol intake: current Drinks per week: 2 Alcohol use details: once a week, glass of wine Substance use: never Substance use type: does not use Living arrangements: with family Gender identity (if verbalized by the patient): Female Sexual Orientation (if Verbalized by the Patient): Straight or Heterosexual Spiritual care concerns: No Anes - Eval Final PreProcedure Day of Procedure 09/03/21 14:43 Patient weight: morbidly obese Heart: regular rate and rhythm Lungs: clear to auscultation Airway: Mallampati scale class II Neurological: alert and oriented Last oral intake: >/= 8 hours ASA classification: III Emergent: no Anesthetic plan: proceed Anesthesia type and monitoring: general GIVS and standard monitoring Results Review: All pre-operative results and documents have been reviewed as part of the pre-operative evaluation. Informed Consent: The patient's anesthetic plan and its attendant risks and benefits were discussed with the patient/family/POA. Questions were solicited and answers provided to the satisfaction of the patient/family/POA.
--- NOTE | 2021-09-03 15:37 | PM.HPGS ---
History of Present Illness History of Present Illness Consent: Risks, benefits, and alternatives have been discussed and questions answered. Patient agrees to proceed with procedure. Chief complaint: dysphagia Narrative: Jocelin Oates is a 55 year old female Found to have grade 3 esophagitis with stricture in March of this year. Her stricture was dilated up to 19 mm. She is beginning to have difficulty swallowing again. We recommended repeat EGD in 3 months and she is a bit late getting that done. she states that her swallowing was good for about 3 months and now she is having to stop eating during a meal. Also, she is having burning in her upper substernal area during meals. Taking the proton pump inhibitor helped but unfortunately she went several weeks without it because of insurance issues. Review of Systems Review of Systems: All systems reviewed & are unremarkable except as noted in HPI and below PMFSH Past Medical History Medical History Chicken pox Chronic pain COPD (chronic obstructive pulmonary disease) Elevated BP without diagnosis of hypertension Gallstones GERD (gastroesophageal reflux disease) Heartburn Hemorrhoids Hyperlipidemia Migraine Miscarriage Vitamin D deficiency Surgical History Surgical History H/O stem cell transplant Right knee PRP stem cell injection August 2018 History of appendectomy (~07/2020) History of x 2 History of D&C x 2 History of hemorrhoidectomy Family History Family History Father Heart disease Heart attack Diabetes mellitus Mother Migraines Arthritis Cognitive and behavioral changes Social History Social History Smoking status: Never smoker Alcohol intake: current Drinks per week: 2 Alcohol use details: once a week, glass of wine Substance use: never Substance use type: does not use Living arrangements: with family Gender identity (if verbalized by the patient): Female Sexual Orientation (if Verbalized by the Patient): Straight or Heterosexual Spiritual care concerns: No Meds Home Medications and Allergies Home Medications Medication Instructions Recorded Confirmed Type hkmehrc-wrwzzzcdvnidb-fvhcbxnr 250 1 tablet PO Q4-6H PRN Migraine 01/01/19 09/04/21 History mg-250 mg-65 mg tablet (Excedrin Headache Migraine) fxoiacnmeq-sesxrxnnnidwh-ybgrsdsm 1 cap PO Q4H PRN Migraine Headache 01/01/19 09/04/21 History 50 mg-300 mg-40 mg capsule (Fioricet) vitamin B complex (B 1 tablet PO DAILY 07/28/20 09/04/21 History Complex-Vitamin B12 tablet) aspirin 81 mg tablet,delayed 81 mg PO DAILY 09/26/20 09/04/21 History release ascorbic acid (vitamin C) 500 mg 500 mg PO DAILY 02/16/21 09/04/21 History tablet (Vitamin C) cholecalciferol (vitamin D3) 25 75 mcg PO DAILY 02/16/21 09/04/21 History mcg (1,000 unit) tablet (Vitamin D3) docusate sodium 100 mg capsule 100 mg PO BID 02/16/21 09/04/21 History (Colace) melatonin 10 mg tablet 10 mg PO HS PRN Insomnia 02/16/21 09/04/21 History pantoprazole 40 mg tablet,delayed 40 mg PO QAM #30 tabs 08/28/21 09/04/21 Rx release valacyclovir 1 gram tablet 2,000 mg PO Q12H PRN cold sores 09/04/21 09/04/21 Rx #16 tabs Allergies Allergy/AdvReac Type Severity Reaction Status Date / Time aspirin AdvReac Mild bleeding Verified 09/04/21 11:37 Exam Const: General: alert Orientation/consciousness: patient oriented x3 Resp: Auscultation: clear to auscultation bilaterally Cardio: Rhythm: regular rhythm GI: GI Palp: Yes Soft to palpation and No Tenderness to palpation present (GI) Neuro: General: patient oriented x3 Assessment and Plan Assessment and plan (1) Dysphagia: Code(s): R13.10 - Dysphagia, unspeci
[2021-09-04 11:38] VITALS: BP 133/75; PULSE 65; RESP 17; TEMP 36.6; O2SAT 99; BMI 44.2
[2021-09-04] MEDS: LACTATED RINGERS 1,000 ML 150 ML IV CONT (11:50)
[2021-09-04 12:23] VITALS: BP 140/86; PULSE 75; RESP 18; O2SAT 100
[2021-09-04 12:33] VITALS: BP 136/89; PULSE 66; RESP 20; O2SAT 100
[2021-09-04 12:43] VITALS: BP 130/87; PULSE 62; RESP 20; O2SAT 100
== END 2021-09-04 12:55 | disposition home or self-care (01) ==
PROVIDERS: PCP Internal Medicine; Visit Provider Internal Medicine Gastroenterology
PROC: 0DJ08ZZ Inspection of Upper Intestinal Tract, Via Natural or Artificial Opening Endoscopic (ICD-10-PCS; CPT 43235; principal; 2021-09-04 12:30)
DX: R13.10 Dysphagia, unspecified (principal); K22.2 Esophageal obstruction; R12 Heartburn; K21.9 Gastro-esophageal reflux disease without esophagitis; J44.9 Chronic obstructive pulmonary disease, unspecified; E55.9 Vitamin D deficiency, unspecified; E78.5 Hyperlipidemia, unspecified; R03.0 Elevated blood-pressure reading, without diagnosis of hypertension; Z79.82 Long term (current) use of aspirin; E66.01 Morbid (severe) obesity due to excess calories; Z68.41 Body mass index [BMI] 40.0-44.9, adult
CPT/HCPCS: 43249; C1726; J2704; J7120

== ENCOUNTER 2021-11-23 10:36 | Outpatient (CLI) | payer OTHER, SELFPAY ==
--- NOTE | ~2021-11-23 | MM_ITS ---
EXAMINATION: MM screening [facility] BI w [place] HISTORY: Screening mammogram TECHNIQUE: Craniocaudal and mediolateral oblique 3-D tomosynthesis images were obtained and synthetic 2-D images were generated. CAD analysis was submitted and interpreted. COMPARISON: 05/08/2020, 05/16/2018, 12/28/2016 BREAST PARENCHYMAL COMPOSITION: There are scattered areas of fibroglandular density. FINDINGS: There is no suspicious mass, calcification, or architectural distortion to suggest malignan cy in either breast. There has been no suspicious interval change. IMPRESSION: 1. No mammographic evidence of malignancy. 2. Recommend routine screening mammography in one year. BI-RADS Category 1: Negative Reviewed, dictated and finalized at location A.
== END 2021-11-23 10:37 | disposition home or self-care (01) ==
PROVIDERS: PCP Internal Medicine; Visit Provider Nurse Practitioner
DX: Z12.31 Encounter for screening mammogram for malignant neoplasm of breast (principal)
CPT/HCPCS: 77063; 77067

== ENCOUNTER → 2022-04-16 15:37 | Outpatient (CLI) | payer OTHER, SELFPAY ==
--- NOTE | ~2022-04-16 | US_ITS ---
EXAMINATION: US transvaginal DATE: 04/16/2022 16:10 INDICATION: Abnormal uterine bleeding. Postmenopausal bleeding. Comparison:No prior studies for comparison. TECHNIQUE: Multiple transabdominal and endovaginal sonographic images of the pelvis performed. FINDINGS: The uterus measures 8 x 3.4 x 3.2 cm. The endometrial complex measures 9 mm. The ovaries are not visualized. There is no free fluid in the pelvis. There are no abnormal masses seen on either side. IMPRESSION: 1. Thickened endomtrial complex. The differential diagnosis includes endometrial hyperplasia, polyp a nd carcinoma. Biopsy is recommended. Reviewed, dictated and finalized at location B. PERSON IMPRESSION: 1. Thickened endomtrial complex. The differential diagnosis includes endometria l hyperplasia, polyp and carcinoma. Biopsy is recommended.
== END ==
PROVIDERS: PCP Internal Medicine; Visit Provider Internal Medicine
DX: N93.9 Abnormal uterine and vaginal bleeding, unspecified (principal)
CPT/HCPCS: 76830

== ENCOUNTER → 2022-05-28 13:23 | Outpatient (CLI) | payer OTHER, SELFPAY ==
--- NOTE | ~2022-05-28 | CT_ITS ---
EXAMINATION: CT abdomen pelvis wo/w con DATE: 05/28/2022 14:35 INDICATION: Gross hematuria TECHNIQUE: Computed tomography (CT) of the abdomen and pelvis was performed without intravenous contr ast. CT of the abdomen and pelvis was then attempted but incomplete due to infiltration of the IV. Th e dose-length product (DLP) was 1128.14 mGy-cm. Automated exposure control and iterative reconstructi on technique were employed. COMPARISON: 07/28/2020 FINDINGS: The lung bases are clear. The heart size is normal. The liver is diffusely low in attenuati on when compared with the spleen, consistent with hepatic steatosis. Stones are present in the nondis tended gallbladder. The spleen, pancreas, and adrenal glands are normal. There is a chronic 2 cm cyst of the left kidney with a 5 mm nonobstructing stone at its periphery the right kidney is unremarkabl e. There are no stones in the ureters or bladder. No hydronephrosis or hydroureter. No pathologically enlarged abdominal or pelvic lymph nodes are identified. No free intraperitoneal gas or evidence of bowel obstruction. Changes of appendectomy are noted. Colonic diverticulosis is present without evide nce of diverticulitis. IMPRESSION: 1. Nonobstructing left nephrolithiasis. 2. Cholelithiasis. 3. Diffuse hepatic steatosis. Reviewed, dictated and finalized at location B.
== END ==
PROVIDERS: PCP Internal Medicine; Visit Provider Internal Medicine
DX: R31.0 Gross hematuria (principal)
CPT/HCPCS: 74178

== ENCOUNTER 2022-05-28 18:03 | Emergency (ER) | payer OTHER, SELFPAY ==
[2022-05-28 18:16] VITALS: BP 141/71; PULSE 78; RESP 18; TEMP 36.3; O2SAT 99
--- NOTE | 2022-05-28 20:19 | ED.ALLEREA ---
HPI - Allergic Reaction General Chief complaint: Allergic Reaction <Dinah Cardona PA-C - Last Filed: 05/29/22 01:32> Stated complaint: REACTION TO IV CONTRAST <Dinah Cardona PA-C - Last Filed: 05/29/22 01:32> Time Seen by Provider: 05/28/22 20:06 <Dinah Cardona PA-C - Last Filed: 05/29/22 01:32> History of Present Illness HPI narrative: Patient is a 56-year-old female here for evaluation of hand swelling over the past day. Patient had an outpatient CT abdomen pelvis done using IV contrast through the hand IV when the IV infiltrated and the contrast presumably extravasated. Patient has had progressive swelling throughout the day in the hand but denies significant pain. She has attempted ibuprofen, ice and Benadryl without relief of her symptoms. She has had no pain with range of motion of the fingers but states it is difficult due to feeling tight. <Dinah Cardona PA-C - Last Filed: 05/29/22 01:32> Related Data Home medications: Home Medications Medication Instructions Recorded Confirmed qatqswf-ficitrxqvpdjg-qjwkrrgj 250 1 tablet PO Q4-6H PRN Migraine 01/01/19 05/28/22 mg-250 mg-65 mg tablet (Excedrin Headache Migraine) wtthibsory-teiqqvlqbyihs-qeyalpis 1 cap PO Q4H PRN Migraine Headache 01/01/19 05/28/22 50 mg-300 mg-40 mg capsule (Fioricet) vitamin B complex (B 1 tablet PO DAILY 07/28/20 05/28/22 Complex-Vitamin B12 tablet) aspirin 81 mg tablet,delayed 81 mg PO DAILY 09/26/20 05/28/22 release ascorbic acid (vitamin C) 500 mg 500 mg PO DAILY 02/16/21 05/28/22 tablet (Vitamin C) docusate sodium 100 mg capsule 100 mg PO BID 02/16/21 05/28/22 (Colace) cholecalciferol (vitamin D3) 125 125 mcg PO DAILY 03/10/22 05/28/22 mcg (5,000 unit) capsule medroxyprogesterone 10 mg tablet 10 mg PO DAILY 05/10/22 05/28/22 <SRINIVAS BurgerC - Last Filed: 05/29/22 01:32> Allergies/adverse reactions: Allergies Allergy/AdvReac Type Severity Reaction Status Date / Time aspirin AdvReac Mild bleeding Verified 05/28/22 09:32 <Dinah Cardona PA-C - Last Filed: 05/29/22 01:32> Review of Systems Review of Systems: Gen.: Denies fevers or chills Eyes: Denies eye pain or visual change ENT: Denies congestion Respiratory: Denies shortness of breath or cough CV: Denies chest pain or palpitations GI: Denies abdominal pain nausea, emesis or diarrhea denies burning, urgency, frequency or hematuria Musculoskeletal: Reports hand tightness Neuro: Denies numbness, tingling, weakness or focal weakness Skin: Denies rash Except as documented, all other systems reviewed and negative <Dinah Cardona PA-C - Last Filed: 05/29/22 01:32> [facility] Past Medical History Medical History: Medical History Chicken pox Chronic pain COPD (chronic obstructive pulmonary disease) Elevated BP without diagnosis of hypertension Gallstones GERD (gastroesophageal reflux disease) Heartburn Hemorrhoids Hyperlipidemia Migraine Miscarriage Vitamin D deficiency <Dinah Cardona PA-C - Last Filed: 05/29/22 01:32> Surgical History Surgical History: Surgical History H/O stem cell transplant Right knee PRP stem cell injection August 2018 History of appendectomy (~07/2020) History of x 2 History of D&C x 2 History of hemorrhoidectomy <Dinah Cardona PA-C - Last Filed: 05/29/22 01:32> Family History Family History: Family History Father Heart disease Heart attack Diabetes mellitus Mother Migraines Arthritis Cognitive and behavioral changes <Dinah Cardona PA-C - Last Filed: 05/29/22 01:32> Social History Social History: Social History Smoking status: Ne
[2022-05-28 21:01] VITALS: BP 118/76; PULSE 69; RESP 18; TEMP 36.6; O2SAT 99
== END 2022-05-28 21:02 | disposition home or self-care (01) ==
PROVIDERS: Emergency Provider Physician Assistant; PCP Internal Medicine
DX: T80.89XA Other complications following infusion, transfusion and therapeutic injection, initial encounter (principal); M79.89 Other specified soft tissue disorders; J44.9 Chronic obstructive pulmonary disease, unspecified; E78.5 Hyperlipidemia, unspecified; E55.9 Vitamin D deficiency, unspecified; K21.9 Gastro-esophageal reflux disease without esophagitis; Z79.82 Long term (current) use of aspirin; Z94.84 Stem cells transplant status; Y84.8 Other medical procedures as the cause of abnormal reaction of the patient, or of later complication, without mention of misadventure at the time of the procedure
CPT/HCPCS: 99281

== ENCOUNTER 2022-06-23 01:20 | Day surgery (SDC) | payer OTHER, SELFPAY ==
[2022-06-16 10:08] VITALS: BMI 43.5
--- NOTE | 2022-06-16 10:16 | PC.NURSE ---
Report to the Outpatient Waiting Room, entrance under the green pavilion located off [facility], at time 1000 on date 06/23/22. Planned Procedure Time: 1200. Time changes happen often and if your time is changed the preop area will call you the afternoon before. - You and your visitor will be asked to self-screen and do not enter if you have any COVID symptoms. - A mask is optional within the hospital at this time. Patients may have clear liquids (water, carbonated beverages, clear teas, apple juice) until 3 hours prior to surgery with a maximum of 20 ounces. - No food from midnight until time of surgery Take the following medications with a SIP of water the morning of surgery: VALACYCLOVIR IF NEEDED DO NOT STOP ANY OF YOUR OTHER PRESCRIPTION MEDICATIONS PRIOR TO SURGERY?EXCEPT THE FOLLOWING Medications to discontinue per physician: VITAMINS/SUPPLEMENTS Date to take last dose: 06/19/22 Please no make-up, nail portuguese, hairspray, perfume, deodorant, or body powder the day of surgery. No jewelry (including any body piercings) or valuables the day of surgery, leave them at home. Please take a shower or bath the night before, or the morning of, surgery with an antibacterial soap. Wear comfortable, loose fitting clothing. - Jewelry must be removed prior to entering the operating room. Rings and piercings that are not removed may be cut off. - The hospital will not accept responsibility for valuables. - Please leave all valuables, including medications, at home the day of surgery. If you are going home after surgery, a licensed trailer truck driver must drive you home. - NO public transportation without another adult if you receive anesthesia. - We recommend that an adult stay with you for 24 hours following discharge. - We also recommend that you do not drive, make important decision, drink alcoholic beverages, or take any drugs that were not prescribed by your health care provider for at least 24 hours after your discharge time. Follow any additional instructions given to you from your surgeon. If you or anyone in your household have experienced Covid symptoms in the past week, please notify your surgeon or the nurse liaison at the phone number below for possible testing. Telephone instructions given to PT - FLOYD GAN and asked if any additional questions and then verbalized understanding. Patient advised to call surgeon office or pre surgery nurse liaison [phone] if any additional questions.
--- NOTE | 2022-06-22 14:14 | WPDANESEPPF ---
Anes - Initial Pre Proc Eval Procedure: Operation Date: 06/23/22 12:00 Proposed Procedures p Hysteroscopy with Dilation and Curettage - Benedict Terry MD Date/Time: 06/22/22 14:14 Surgeon: Benedict Terry MD Pre Op Diagnosis: Post Menopausal Bleed Patient Data Age: 56 Gender: F Height: 1.68 m Weight: 122.5 kg Allergies Allergy/AdvReac Type Severity Reaction Status Date / Time aspirin AdvReac Mild bleeding Verified 06/16/22 10:05 Home Medications Medication Instructions Recorded Confirmed Type ueynggt-xbiqwpaabarkz-eqgkonhw 250 1 tablet PO Q4-6H PRN Migraine 01/01/19 06/16/22 History mg-250 mg-65 mg tablet (Excedrin Headache Migraine) hceigpmivf-ryrdieditnode-udyvrpmc 1 cap PO Q4H PRN Migraine Headache 01/01/19 06/16/22 History 50 mg-300 mg-40 mg capsule (Fioricet) vitamin B complex (B 1 tablet PO DAILY 07/28/20 06/16/22 History Complex-Vitamin B12 tablet) ascorbic acid (vitamin C) 500 mg 500 mg PO DAILY 02/16/21 06/16/22 History tablet (Vitamin C) cholecalciferol (vitamin D3) 125 125 mcg PO DAILY 03/10/22 06/16/22 History mcg (5,000 unit) capsule valacyclovir 1 gram tablet 2,000 mg PO Q12H PRN cold sores 05/10/22 06/16/22 Rx #16 tabs benzonatate 100 mg capsule 100 mg PO Q6H PRN cough #30 caps 05/28/22 06/16/22 Rx omeprazole 20 mg tablet,delayed 20 mg PO DAILY 06/16/22 06/16/22 History release semaglutide (weight loss) 0.5 0.5 mg (0.5 mL) subcut WEEKLY #2 mL 06/18/22 Rx mg/0.5 mL subcutaneous pen injector (Wegovy) Patient hx anesthesia problems: none Family hx anesthesia problems: none Results Review: All pre-operative results and documents have been reviewed as part of the pre-operative evaluation. [facility] Past Medical History Medical History (Updated 06/22/22 @ 14:15 by Aguila Gordon MD) Chicken pox Chronic pain COPD (chronic obstructive pulmonary disease) Elevated BP without diagnosis of hypertension Gallstones GERD (gastroesophageal reflux disease) Heartburn Hemorrhoids Hyperlipidemia Migraine Miscarriage Morbid obesity with BMI of 40.0-44.9, adult Vitamin D deficiency Surgical History Surgical History H/O stem cell transplant Right knee PRP stem cell injection August 2018 History of appendectomy (~07/2020) History of x 2 History of D&C x 2 History of hemorrhoidectomy Family History Family History Father Heart disease Heart attack Diabetes mellitus Mother Migraines Arthritis Cognitive and behavioral changes Social History Social History Smoking status: Never smoker Alcohol intake: current Drinks per week: 2 Alcohol use details: 4/MONTH Substance use: never Substance use type: does not use Lack of Transportation: No Lack of Food: Never True Current Housing: I Have Housing Concerned About Future Housing: No Difficulty Paying Gas/Electric Bills: No Difficulty Paying for Meds: No Currently Unemployed: No Education: Bachelor's Degree Difficulty w/ Childcare or Family Care: No Living arrangements: with family Gender identity (if verbalized by the patient): Female Sexual Orientation (if Verbalized by the Patient): Straight or Heterosexual Spiritual care concerns: No Anes - Eval Final PreProcedure Day of Procedure 06/22/22 14:14 Patient weight: morbidly obese Heart: regular rate and rhythm Lungs: clear to auscultation Airway: Mallampati scale class II Neurological: alert and oriented Last oral intake: >/= 8 hours ASA classification: III Emergent: no Anesthetic plan: proceed Anesthesia type and monitoring: general ETT and standard monitoring Results Review: All pre-operative results and documents have been reviewed as part of the pre-operative evaluation. Informed Consent: The patient's
[2022-06-23 10:28] VITALS: BP 139/87; PULSE 69; RESP 16; TEMP 36.1; O2SAT 100
[2022-06-23] MEDS: ACETAMINOPHEN 500 MG TABLET 1000 MG PO (10:51)
[2022-06-23] MEDS: LACTATED RINGERS 1,000 ML 30 ML IV CONT (10:52)
--- NOTE | 2022-06-23 11:43 | PM.IMHP ---
H&P: HPI History of Present Illness Date/Time: 06/23/22 11:43 Chief Complaint: Spotting Narrative: 56 y/o with some brown spotting. Ultrasound exam showed a thickened endometrial complex at 9 mm. She has a history of benign endometrial polyps. Review of Systems Review of Systems: All systems reviewed & are unremarkable except as noted in HPI and below PMFSH Past Medical History Medical History (Updated 06/23/22 @ 11:46 by Benedict Terry MD) Chicken pox Chronic pain COPD (chronic obstructive pulmonary disease) Elevated BP without diagnosis of hypertension Gallstones GERD (gastroesophageal reflux disease) Heartburn Hemorrhoids Hyperlipidemia Migraine Miscarriage Morbid obesity with BMI of 40.0-44.9, adult Postmenopausal bleeding Vitamin D deficiency Surgical History Surgical History H/O stem cell transplant Right knee PRP stem cell injection August 2018 History of appendectomy (~07/2020) History of x 2 History of D&C x 2 History of hemorrhoidectomy Family History Family History Father Heart disease Heart attack Diabetes mellitus Mother Migraines Arthritis Cognitive and behavioral changes Social History Social History Smoking status: Never smoker Alcohol intake: current Drinks per week: 2 Alcohol use details: 4/MONTH Substance use: never Substance use type: does not use Lack of Transportation: No Lack of Food: Never True Current Housing: I Have Housing Concerned About Future Housing: No Difficulty Paying Gas/Electric Bills: No Difficulty Paying for Meds: No Currently Unemployed: No Education: Bachelor's Degree Difficulty w/ Childcare or Family Care: No Living arrangements: with family Gender identity (if verbalized by the patient): Female Sexual Orientation (if Verbalized by the Patient): Straight or Heterosexual Spiritual care concerns: No Meds Home Medications and Allergies Home Medications Medication Instructions Recorded Confirmed Type rgvefjd-mwqdlgdurmdxc-buylilyn 250 1 tablet PO Q4-6H PRN Migraine 01/01/19 06/23/22 History mg-250 mg-65 mg tablet (Excedrin Headache Migraine) jzqnyisjbl-hxinrluyttpyx-llppksqs 1 cap PO Q4H PRN Migraine Headache 01/01/19 06/23/22 History 50 mg-300 mg-40 mg capsule (Fioricet) vitamin B complex (B 1 tablet PO DAILY 07/28/20 06/23/22 History Complex-Vitamin B12 tablet) ascorbic acid (vitamin C) 500 mg 500 mg PO DAILY 02/16/21 06/23/22 History tablet (Vitamin C) cholecalciferol (vitamin D3) 125 125 mcg PO DAILY 03/10/22 06/23/22 History mcg (5,000 unit) capsule valacyclovir 1 gram tablet 2,000 mg PO Q12H PRN cold sores 05/10/22 06/23/22 Rx #16 tabs benzonatate 100 mg capsule 100 mg PO Q6H PRN cough #30 caps 05/28/22 06/23/22 Rx omeprazole 20 mg tablet,delayed 20 mg PO DAILY 06/16/22 06/23/22 History release semaglutide (weight loss) 0.5 0.5 mg (0.5 mL) subcut WEEKLY #2 mL 06/18/22 06/23/22 Rx mg/0.5 mL subcutaneous pen injector (Vonnievjose) Allergies Allergy/AdvReac Type Severity Reaction Status Date / Time aspirin AdvReac Mild NOSE BLEEDS Verified 06/23/22 11:07 Vital Signs Vital Signs - 24 hr 06/23/22 10:28 Temperature 36.1 C L Pulse Rate 69 Respiratory Rate 16 Blood Pressure 139/87 Pulse Oximetry 100 Oxygen Delivery Room Air Exam Const: Orientation/consciousness: patient oriented x3 Other: Well-developed, well-nourished female in no acute distress. Neck: Thyroid: thyroid normal Lymphatic: no lymphadenopathy noted (in neck, axilla or inguinal nodes) Resp: Effort & Inspection: normal respiratory effort Auscultation: clear to auscultation bilaterally Cardio: Rate: regular rate Rhythm: regular rhythm Heart sounds: S1 normal heart sound present and S2 no
--- NOTE | 2022-06-23 11:58 | WPDHPUPDATE1 ---
History and Physical Update Update Date/Time: 06/23/22 11:58 History and Physical has been reviewed, including an updated exam of the patient. There are NO changes in the patient's condition. Risks, benefits, and alternatives have been discussed and questions answered. Patient agrees to proceed with procedure.
[2022-06-23] MEDS: KETOROLAC 30 MG/ML VIAL (*BKC) IV PUSH (12:28)
[2022-06-23] MEDS: LIDOCAINE HCL 1% LOCAL INJ 20 ML VIAL 10 ML INFILTRATE (12:29)
[2022-06-23 12:35] VITALS: BP 123/80; PULSE 64; RESP 16; O2SAT 93
--- NOTE | 2022-06-23 12:36 | W.PM.PROC2 ---
Procedure Note - Detailed Date of Procedure 06/23/22 Pre-op Diagnosis Post Menopausal bleeding Thickened endometrial complex on ultrasound Post-op Diagnosis Same Procedure Performed Hysteroscopy Dilation and sharp curettage Endometrial polypectomies Surgeon Benedict Terry MD Anesthesia MAC and Local (1% lidocaine paracervical block) Findings Two small endometrial polyps Description of Procedure The patient was taken to the operating room where she was prepared and draped in the usual sterile fashion in the dorsal lithotomy position. The bladder was drained with a red rubber catheter. A sterile speculum was placed into the vagina. The anterior lip of the cervix was grasped with single-tooth tenaculum. Ten mL of 1% lidocaine was administered in a paracervical block. The cervix was then gently dilated using Hegar dilators until an 8 mm dilator could be passed. Hysteroscopy was performed using sterile saline as a distention medium. Findings are as noted above. The polyp forceps were advanced and two small polyps easily removed. Sharp curettage was then performed, and endometrial curettings were collected on a Telfa pad and passed off to be sent to pathology. A second look was taken with the hysteroscope and the polyps were noted to have been completely removed. Hemostasis was excellent. Sponge, lap, needle and instrument counts were correct. The patient was awakened and taken to the recovery room in stable condition. I was present and scrubbed through the entire procedure. Estimated Blood Loss 10 Drains No Packing No Pathology Yes (Endometrial curettings with polyp) Complications None Condition Stable Disposition PACU
[2022-06-23 13:05] VITALS: BP 118/76; PULSE 62; O2SAT 96
[2022-06-23 13:35] VITALS: BP 131/83; PULSE 65; RESP 16
[2022-06-23 14:05] VITALS: BP 137/87; PULSE 56; RESP 14
== END 2022-06-23 14:10 | disposition home or self-care (01) ==
PROVIDERS: PCP Internal Medicine; Visit Provider Obstetrics & Gynecology
PROC: 0U5B8ZZ Destruction of Endometrium, Via Natural or Artificial Opening Endoscopic (ICD-10-PCS; CPT 58563; principal; 2022-06-23 12:00)
DX: N95.0 Postmenopausal bleeding (principal); N84.0 Polyp of corpus uteri; J44.9 Chronic obstructive pulmonary disease, unspecified; E78.5 Hyperlipidemia, unspecified; E55.9 Vitamin D deficiency, unspecified; K21.9 Gastro-esophageal reflux disease without esophagitis; E66.01 Morbid (severe) obesity due to excess calories; Z68.41 Body mass index [BMI] 40.0-44.9, adult; Z79.899 Other long term (current) drug therapy
CPT/HCPCS: 58558; 88305; A9270; J1100; J1885; J2250; J2405; J2704; J3010; J7120

== ENCOUNTER 2022-11-01 01:11 | Day surgery (SDC) | payer OTHER, SELFPAY ==
[2022-10-21 14:07] VITALS: BMI 40.7
--- NOTE | 2022-10-21 14:29 | PC.NURSE ---
Patient instucted to hold Wegovy for 10 days prior to colonoscopy. Patient verbalized understanding.
--- NOTE | 2022-10-29 15:39 | PM.HPGS ---
History of Present Illness History of Present Illness Consent: Risks, benefits, and alternatives have been discussed and questions answered. Patient agrees to proceed with procedure. Chief complaint: neoplasm screening Narrative: Jocelin Oates is a 57 year old female who is referred for colon cancer screening. Her grandfather had colon cancer Review of Systems Review of Systems: All systems reviewed & are unremarkable except as noted in HPI and below PMFSH Past Medical History Medical History Chicken pox Chronic pain COPD (chronic obstructive pulmonary disease) Elevated BP without diagnosis of hypertension Gallstones GERD (gastroesophageal reflux disease) Heartburn Hemorrhoids Hyperlipidemia Migraine Miscarriage Morbid obesity with BMI of 40.0-44.9, adult Postmenopausal bleeding Vitamin D deficiency Surgical History Surgical History H/O stem cell transplant Right knee PRP stem cell injection August 2018 History of appendectomy (~07/2020) History of x 2 History of D&C x 2 History of hemorrhoidectomy Family History Family History Father Heart disease Heart attack Diabetes mellitus Mother Migraines Arthritis Cognitive and behavioral changes Social History Social History Smoking status: Never smoker Alcohol intake: current Drinks per week: 2 Alcohol use details: 3-4 drinks/month Substance use: former Substance use type: marijuana Other substance usage details: many years ago - marijuana Lack of Transportation: No Lack of Food: Never True Current Housing: I Have Housing Concerned About Future Housing: No Difficulty Paying Gas/Electric Bills: No Difficulty Paying for Meds: No Currently Unemployed: No Education: Bachelor's Degree Difficulty w/ Childcare or Family Care: No Living arrangements: with family Gender identity (if verbalized by the patient): Female Sexual Orientation (if Verbalized by the Patient): Straight or Heterosexual Spiritual care concerns: No Meds Home Medications and Allergies Home Medications Medication Instructions Recorded Confirmed Type [id number]-vhnlmkflbjnbo-gdfkocla 250 1 tablet PO Q4-6H PRN Migraine 01/01/19 10/21/22 History mg-250 mg-65 mg tablet (Excedrin Headache Migraine) vitamin B complex (B 1 tablet PO DAILY 07/28/20 10/21/22 History Complex-Vitamin B12 tablet) ascorbic acid (vitamin C) 500 mg 500 mg PO DAILY 02/16/21 10/21/22 History tablet (Vitamin C) cholecalciferol (vitamin D3) 125 125 mcg PO DAILY 03/10/22 10/21/22 History mcg (5,000 unit) capsule valacyclovir 1 gram tablet 2,000 mg PO Q12H PRN cold sores 05/10/22 10/21/22 Rx #16 tabs benzonatate 100 mg capsule 100 mg PO Q6H PRN cough #30 caps 05/28/22 10/21/22 Rx omeprazole 20 mg tablet,delayed 20 mg PO DAILY 06/16/22 10/21/22 History release semaglutide (weight loss) 1.7 1.7 mg (0.75 mL) subcut WEEKLY #3 09/08/22 10/21/22 Rx mg/0.75 mL subcutaneous pen mL injector (Wegovy) semaglutide (weight loss) 2.4 2.4 mg (0.75 mL) subcut WEEKLY #3 10/04/22 10/21/22 Rx mg/0.75 mL subcutaneous pen mL injector (Wegovy) magnesium 200 mg tablet 200 mg PO DAILY 10/21/22 10/21/22 History Allergies Allergy/AdvReac Type Severity Reaction Status Date / Time aspirin AdvReac Mild NOSE BLEEDS Verified 11/01/22 10:27 Exam Const: General: alert Orientation/consciousness: patient oriented x3 Resp: Auscultation: clear to auscultation bilaterally Cardio: Rhythm: regular rhythm GI: GI Palp: Yes Soft to palpation and No Tenderness to palpation present (GI) Neuro: General: patient oriented x3 Assessment and Plan Assessment and plan (1) Screening for colon cancer: Code(s): Z12.11 - Encounter for
--- NOTE | 2022-11-01 08:05 | WPDANESEPPF ---
Anes - Initial Pre Proc Eval Procedure: Operation Date: 11/01/22 11:30 Proposed Procedures p Screening Colonoscopy - Antoni Luis MD Date/Time: 11/01/22 08:05 Surgeon: Antoni Luis MD Pre Op Diagnosis: neoplasm screening Patient Data Age: 57 Gender: F Height: 1.68 m Weight: 114.5 kg Allergies Allergy/AdvReac Type Severity Reaction Status Date / Time aspirin AdvReac Mild NOSE BLEEDS Verified 11/01/22 10:27 Home Medications Medication Instructions Recorded Confirmed Type [id number]-xhpevokdlgyoy-yatfobxg 250 1 tablet PO Q4-6H PRN Migraine 01/01/19 10/21/22 History mg-250 mg-65 mg tablet (Excedrin Headache Migraine) vitamin B complex (B 1 tablet PO DAILY 07/28/20 10/21/22 History Complex-Vitamin B12 tablet) ascorbic acid (vitamin C) 500 mg 500 mg PO DAILY 02/16/21 10/21/22 History tablet (Vitamin C) cholecalciferol (vitamin D3) 125 125 mcg PO DAILY 03/10/22 10/21/22 History mcg (5,000 unit) capsule valacyclovir 1 gram tablet 2,000 mg PO Q12H PRN cold sores 05/10/22 10/21/22 Rx #16 tabs benzonatate 100 mg capsule 100 mg PO Q6H PRN cough #30 caps 05/28/22 10/21/22 Rx omeprazole 20 mg tablet,delayed 20 mg PO DAILY 06/16/22 10/21/22 History release semaglutide (weight loss) 1.7 1.7 mg (0.75 mL) subcut WEEKLY #3 09/08/22 10/21/22 Rx mg/0.75 mL subcutaneous pen mL injector (Wegovy) semaglutide (weight loss) 2.4 2.4 mg (0.75 mL) subcut WEEKLY #3 10/04/22 10/21/22 Rx mg/0.75 mL subcutaneous pen mL injector (Wegovy) magnesium 200 mg tablet 200 mg PO DAILY 10/21/22 10/21/22 History Patient hx anesthesia problems: none Family hx anesthesia problems: none Results Review: All pre-operative results and documents have been reviewed as part of the pre-operative evaluation. [facility] Past Medical History Medical History (Updated 07/16/22 @ 12:48 by Ekta Lawson, COUNTER [employer]) Chicken pox Chronic pain COPD (chronic obstructive pulmonary disease) Elevated BP without diagnosis of hypertension Gallstones GERD (gastroesophageal reflux disease) Heartburn Hemorrhoids Hyperlipidemia Migraine Miscarriage Morbid obesity with BMI of 40.0-44.9, adult Postmenopausal bleeding Vitamin D deficiency Surgical History Surgical History H/O stem cell transplant Right knee PRP stem cell injection August 2018 History of appendectomy (~07/2020) History of x 2 History of D&C x 2 History of hemorrhoidectomy Family History Family History Father Heart disease Heart attack Diabetes mellitus Mother Migraines Arthritis Cognitive and behavioral changes Social History Social History Smoking status: Never smoker Alcohol intake: current Drinks per week: 2 Alcohol use details: 3-4 drinks/month Substance use: former Substance use type: marijuana Other substance usage details: many years ago - marijuana Lack of Transportation: No Lack of Food: Never True Current Housing: I Have Housing Concerned About Future Housing: No Difficulty Paying Gas/Electric Bills: No Difficulty Paying for Meds: No Currently Unemployed: No Education: Bachelor's Degree Difficulty w/ Childcare or Family Care: No Living arrangements: with family Gender identity (if verbalized by the patient): Female Sexual Orientation (if Verbalized by the Patient): Straight or Heterosexual Spiritual care concerns: No Anes - Eval Final PreProcedure Day of Procedure 11/01/22 08:05 Patient weight: morbidly obese Heart: regular rate and rhythm Lungs: clear to auscultation Airway: Mallampati scale class II Neurological: alert and oriented Last oral intake: >/= 8 hours ASA classification: III Emergent: no Anesthetic plan: proceed Anesthesia type and monitoring: general GIVS and standard monitoring Results Rev
[2022-11-01 10:31] VITALS: BP 135/98; PULSE 94; RESP 18; TEMP 36.3; O2SAT 100
[2022-11-01] MEDS: LACTATED RINGERS 1,000 ML 150 ML IV CONT (10:53)
[2022-11-01 11:41] VITALS: BP 136/92; PULSE 88; RESP 15; O2SAT 96
[2022-11-01 11:51] VITALS: BP 134/90; PULSE 85; RESP 19; O2SAT 100
[2022-11-01 12:01] VITALS: BP 142/90; PULSE 78; RESP 21; O2SAT 99
== END 2022-11-01 12:12 | disposition home or self-care (01) ==
PROVIDERS: PCP Internal Medicine; Visit Provider Internal Medicine Gastroenterology
PROC: 0DJD8ZZ Inspection of Lower Intestinal Tract, Via Natural or Artificial Opening Endoscopic (ICD-10-PCS; CPT 45378; principal; 2022-11-01 11:30)
DX: Z12.11 Encounter for screening for malignant neoplasm of colon (principal); K57.30 Diverticulosis of large intestine without perforation or abscess without bleeding; Z86.010 Personal history of colon polyps; Z80.0 Family history of malignant neoplasm of digestive organs; G89.29 Other chronic pain; J44.9 Chronic obstructive pulmonary disease, unspecified; I10 Essential (primary) hypertension; K21.9 Gastro-esophageal reflux disease without esophagitis; E78.5 Hyperlipidemia, unspecified; E55.9 Vitamin D deficiency, unspecified; Z79.82 Long term (current) use of aspirin; Z79.4 Long term (current) use of insulin; E66.01 Morbid (severe) obesity due to excess calories; Z68.41 Body mass index [BMI] 40.0-44.9, adult; Z79.85 Long-term (current) use of injectable non-insulin antidiabetic drugs
CPT/HCPCS: 45378; J2405; J2704; J7120

== ENCOUNTER 2023-03-09 10:47 | Outpatient (CLI) | payer OTHER, SELFPAY ==
[2023-03-09 11:32] LABS: Hematocrit 49.8 % (37.0-47.0); Mean Corpuscular HGB Conc 32.1 g/dl (32-36); Mean Corpuscular Hemoglobin 30.7 pg (26-34); Mean Corpuscular Volume 95.4 fl (80-100); Mean Platelet Volume 9.1 fl (7.4-10.4); Platelet Count Result 341 k/mm3 (150-375); Red Blood Count 5.22 M/mm3 (4.2-5.4); Red Cell Distribution Width 12.5 % (11.5-14.5); White Blood Count 10.8 K/mm3 (4.5-10.0)
[2023-03-09 11:44] LABS: Alanine Aminotransferase 28 U/L (6-35); Albumin Level 4.3 g/dL (3.5-5.1); Alkaline Phosphatase 91 U/L (38-126); Anion Gap 10 mmol/L (8-16); Aspartate Amino Transferase 28 U/L (14-36); Bilirubin,Total 0.9 mg/dL (0.2-1.3); Blood Urea Nitrogen 10 mg/dL (7-17); CRP 0.8 mg/dL (<1.0); Calcium 9.4 mg/dL (8.4-10.2); Carbon Dioxide 23 mmol/L (22-30); Chloride 105 mmol/L (98-107); Estimated Glomerular Filt Rate > 60; Glucose 83 mg/dL (65-110); Potassium 3.9 mmol/L (3.4-5.0); Sodium 138 mmol/L (137-145)
[2023-03-09 12:03] LABS: Erythrocyte Sedimentation Rate 13 mm/hr (0-20)
[2023-03-15 07:37] LABS: Immunoglobulin A 226 mg/dL (47-310); TTG IGA AB <1.0 U/mL (<15.0)
== END 2023-03-09 10:48 | disposition home or self-care (01) ==
LOC: ANHLAB 10:49
PROVIDERS: Visit Provider Nurse Practitioner
DX: K92.89 Other specified diseases of the digestive system (principal); K21.9 Gastro-esophageal reflux disease without esophagitis; K76.0 Fatty (change of) liver, not elsewhere classified
CPT/HCPCS: 36415; 80053; 82784; 84443; 85027; 85652; 86140; 86364

== ENCOUNTER 2023-03-11 07:44 | Outpatient (NON) | payer OTHER, SELFPAY ==
[2023-03-16 19:50] LABS: H pylori Ag Stool Not Detected (Not Detected)
[2023-03-19 01:41] LABS: Calprotectin, Stool 267 mcg/g; Pancreatic Elastase, Stool >500 mcg/g
== END 2023-03-11 07:45 | disposition home or self-care (01) ==
LOC: ANHLAB 07:45
PROVIDERS: Visit Provider Nurse Practitioner
DX: K92.89 Other specified diseases of the digestive system (principal); K21.9 Gastro-esophageal reflux disease without esophagitis; K76.0 Fatty (change of) liver, not elsewhere classified
CPT/HCPCS: 82653; 83993; 87045; 87269; 87338; 87427; 87449

== ENCOUNTER → 2023-04-01 08:01 | Outpatient (CLI) | payer OTHER, SELFPAY ==
--- NOTE | ~2023-04-01 | US_ITS ---
EXAMINATION: US soft tissue abdomen DATE: 04/01/2023 08:16 INDICATION: Palpable lump at the mid epigastric region TECHNIQUE: Multiple grayscale and Doppler ultrasound images of the anterior abdominal wall in the mid abdominal region of concern were obtained. COMPARISON: CT dated 05/28/2022 FINDINGS: Possible 2.1 x 2.2 x 0.7 cm subcutaneous mass at the region of concern which is isoechoic and with id entical echotexture and internal linear echogenic septations as the surrounding subcutaneous fat. IMPRESSION: 1. Palpable abnormality corresponds to a 2.2 x 2.1 x 0.7 cm subcutaneous mass appears identical to th e surrounding subcutaneous fat most consistent with and statistically most likely to represent a lipo ma. Reviewed, dictated and finalized at location A. [employer] SALESPERSON IMPRESSION: 1. Palpable abnormality corresponds to a 2.2 x 2.1 x 0.7 cm subcutaneous mass a ppears identical to the surrounding subcutaneous fat most consistent with and s tatistically most likely to represent a lipoma.
== END ==
PROVIDERS: PCP Internal Medicine Gastroenterology; Visit Provider Clinical Nurse Specialist
DX: R19.00 Intra-abdominal and pelvic swelling, mass and lump, unspecified site (principal)
CPT/HCPCS: 76705

== ENCOUNTER → 2023-04-19 12:38 | Outpatient (CLI) | payer OTHER, SELFPAY ==
--- NOTE | ~2023-04-19 | MM_ITS ---
EXAMINATION: MM screening [facility] BI w [place] HISTORY: Screening TECHNIQUE: Craniocaudal and mediolateral oblique 3-D tomosynthesis images were obtained and synthetic 2-D images were generated. CAD analysis was submitted and interpreted. COMPARISON: Comparison to multiple prior studies sequentially, with oldest reviewed study dated 10/16. BREAST PARENCHYMAL COMPOSITION: Not dense: There are scattered areas of fibroglandular density. FINDINGS: There is no evidence of suspicious mass, calcification, or architectural distortion to sugg est malignancy in either breast. There has been no suspicious interval change. IMPRESSION: 1. No mammographic evidence of malignancy. 2. Recommend routine screening mammography in one year. BI-RADS Category 1: Negative Reviewed, dictated and finalized at location A. E BANKER
== END ==
PROVIDERS: PCP Clinical Nurse Specialist; Visit Provider Obstetrics & Gynecology
DX: Z12.31 Encounter for screening mammogram for malignant neoplasm of breast (principal)
CPT/HCPCS: 77063; 77067

== ENCOUNTER 2023-06-02 13:05 | Outpatient (NON) | payer OTHER, SELFPAY ==
[2023-06-08 14:49] LABS: Calprotectin, Stool 100 mcg/g
== END 2023-06-02 13:06 | disposition home or self-care (01) ==
LOC: ANHLAB 13:05
PROVIDERS: PCP Internal Medicine; Visit Provider Nurse Practitioner
DX: R19.5 Other fecal abnormalities (principal)
CPT/HCPCS: 83993

== ENCOUNTER 2024-01-23 14:20 | Outpatient (CLI) | payer OTHER, SELFPAY ==
--- NOTE | ~2024-01-23 | XR_ITS ---
3 VIEWS LUMBAR SPINE Ordering provider: KIZZY Jimenez-C History: . No injury lbp . Comparison: None. FINDINGS: VERTEBRAL BODIES: No visible fracture or subluxation. Severe bending of the coccyx. DISK SPACES: Narrowing of the disc L5-S1. SOFT TISSUES: Possible right kidney stone. Bilateral sacroiliacs. IMPRESSION: No acute osseous abnormality lumbar spine. Reviewed, dictated and finalized at location A. THER
--- NOTE | ~2024-01-23 | XR_ITS ---
XR knee RT 3V Ordering provider: JEANNIE Jimenez History: . No injury right knee pain . Comparison: None. FINDINGS: BONES: No definite acute fracture or dislocation. The possibility of a fracture in the lateral tibial plateau cannot be excluded. CT evaluation advised. JOINT SPACES: Normal. SOFT TISSUES: Normal. IMPRESSION: No definite acute osseous abnormality right knee. Possibility of fracture in the lateral tibial plate au cannot be excluded. CT evaluation advised. Reviewed, dictated and finalized at location A. ARCHITECT IMPRESSION: No definite acute osseous abnormality right knee. Possibility of fracture in th e lateral tibial plateau cannot be excluded. CT evaluation advised.
== END 2024-01-23 14:21 | disposition home or self-care (01) ==
LOC: GOSHIMG 14:21
PROVIDERS: PCP Clinical Nurse Specialist; Visit Provider Clinical Nurse Specialist
DX: M54.50 Low back pain, unspecified (principal); M25.561 Pain in right knee
CPT/HCPCS: 72100; 73562

== ENCOUNTER 2024-02-06 08:57 | Outpatient (CLI) | payer OTHER, SELFPAY ==
--- NOTE | ~2024-02-06 | MR_ITS ---
MRI of the right knee Clinical history: Pain Technique: Coronal proton density and proton density-weighted images, sagittal proton-density and T2 fat-sat images, and axial proton-density fat-saturated images were acquired. Findings: Anterior and posterior cruciate ligaments are intact. Medial collateral ligament and the la teral collateral ligament complex are intact. Popliteus tendon is intact. There is extensive complex tearing of the anterior horn and body of the lateral meniscus. No definite medial meniscal tear seen. There is focal high-grade chondromalacia at the medial patellar facet. There is extensive advanced ch ondromalacia of the lateral compartment with remodeling of the lateral tibial plateau with subchondra l cystic change. Tricompartmental osteophyte formation is present. There is mild chondral thinning in the medial compartment. Extensor mechanism is intact. No significant joint effusion or Ricketts's cyst. Impression: Extensive complex tearing of the anterior horn and body of the lateral meniscus. Advanced degenerative change of the knee, especially the lateral compartment. Reviewed, dictated and finalized at location . ER HELPER Impression: Extensive complex tearing of the anterior horn and body of the lateral meniscus . Advanced degenerative change of the knee, especially the lateral compartment.
--- NOTE | ~2024-02-06 | US_ITS ---
Limited Abdominal Sonogram: Real-time sonographic imaging of the right upper quadrant was performed. Clinical History: Fatty liver Findings: The liver appears echogenic, with no evidence of mass lesion or bile duct dilatation. Main portal vein demonstrates normal direction of flow. The gallbladder is poorly visualized, but there a re probable multiple gallstones. The common bile duct measures 3 mm. The visualized pancreas, aorta, and IVC are unremarkable. Impression: Diffuse fatty infiltration of the liver. Probable cholelithiasis. Reviewed, dictated and finalized at location M. [employer]ATION [employer] MAINTENANCE EXECUTIVE Impression: Diffuse fatty infiltration of the liver. Probable cholelithiasis.
== END 2024-02-06 08:58 | disposition home or self-care (01) ==
LOC: GOSHIMG 08:59
PROVIDERS: PCP Clinical Nurse Specialist; Visit Provider Clinical Nurse Specialist
DX: S83.271A Complex tear of lateral meniscus, current injury, right knee, initial encounter (principal); M17.11 Unilateral primary osteoarthritis, right knee; K76.0 Fatty (change of) liver, not elsewhere classified; X58.XXXA Exposure to other specified factors, initial encounter
CPT/HCPCS: 73721; 76705

== ENCOUNTER 2024-04-24 16:41 | Outpatient (CLI) | payer OTHER, SELFPAY | END 2024-04-24 16:42 | disposition home or self-care (01) | LOC: MICIMG 16:42 | PROVIDERS: PCP Internal Medicine; Visit Provider Obstetrics & Gynecology | DX: Z12.31 Encounter for screening mammogram for malignant neoplasm of breast (principal) | CPT/HCPCS: 77063; 77067 ==